=== PATIENT | male | born 1970 | race African-American/Black ===

== ENCOUNTER 2019-02-06 05:38 | Outpatient (CLI) | payer OTHER ==
[~2019-02-06] VITALS: Ht 172.7 cm; Wt 92.5 kg
[2019-02-06] MEDS ORDERED: LISI10TA2 PO (15:46)
[2019-02-06] MEDS ORDERED: OMEG1CAP58 PO (15:46)
[2019-02-06] MEDS ORDERED: CETI10TA20 PO (15:46)
== END 2019-02-06 15:47 | disposition home or self-care (01) ==
LOC: PREOP 05:38
PROVIDERS: ATTEND Surgery
DX: Z01.818 Encounter for other preprocedural examination (principal)

== ENCOUNTER 2019-02-13 07:16 | Day surgery (SDC) | payer OTHER ==
[~2019-02-13] VITALS: Ht 172.7 cm; Wt 92.5 kg
[~2019-02-13 07:16] MED LIST: CETI10TA20 PO; LISI10TA2 PO; OMEG1CAP58 PO
[2019-02-13] MEDS ORDERED: LACTATED RINGERS 1,000 ML IV ONE (07:17)
--- OUTSIDE RECORDS SUMMARY | 2019-02-13 07:19 | XMS REPORT | Continuity of Care Document ---
Author Organization Unknown Address Unknown Allergies There is no data. Medications There is no data. Problems Date Dx Coded Attending Type Code Diagnosis Diagnosed By 09/03/2013 ALFRED JOHNS DO V04.81 FLU SHOT Procedures There is no data. Results There is no data. Encounters ACCT No. Visit Date/Time Discharge Status Pt. Type Provider Facility Loc./Unit Complaint [id number] 09/03/2013 11:36:00 09/03/2013 23:59:59 CLS Outpatient ALFRED JOHNS DO
[2019-02-13] MEDS ORDERED: proPOfol 200 MG/20 ML (DIPRIVAN) VIAL IV ONE ×2 (07:35→09:03)
[2019-02-13] MEDS ORDERED: MIDAZOLAM 2 MG/2 ML (VERSED) VIAL ONE (07:36)
[2019-02-13] MEDS ORDERED: LACTATED RINGERS 1,000 ML IV STA (07:37)
[2019-02-13 07:46] VITALS: BP 129/86
--- NOTE | 2019-02-13 08:13 | Progress Note-Pre Operative ---
Pre-Operative Progress Note H&P Reviewed The H&P was reviewed, patient examined and no changes noted. Date Seen by Provider: Feb 13, 2019 Time Seen by Provider: 08:13 Date H&P Reviewed: Feb 13, 2019 Time H&P Reviewed: 08:13 Pre-Operative Diagnosis: screening colonoscopy JUAN ALBERTO BUSCH DO Feb 13, 2019 08:13
--- NOTE | 2019-02-13 09:17 | Progress Note-Post Operative ---
Post-Operative Progess Note Surgeon (s)/Pathology Laboratory Technologist (s) Surgeon JUAN ALBERTO BUSCH DO Pathology Laboratory Technologist: na Pre-Operative Diagnosis screening colonoscopy Post-Operative Diagnosis normal colon Procedure & Operative Findings Date of Procedure 02/13/19 Procedure Performed/Findings colonoscopy Anesthesia Type per mda Estimated Blood Loss Estimated blood loss (mL): min Specimens/Packing Specimens Removed none JUAN ALBERTO BUSCH DO Feb 13, 2019 09:17
--- NOTE | 2019-02-13 09:18 | Discharge Inst-Simple/Standard ---
Discharge Inst-Standard Patient Instructions/Follow Up Plan of Care/Instructions/FU: repeat colonoscopy 10 years unless family history of colon cancer then 5 years. If any issues before then be seen at that time. Activity as Tolerated: Yes Discharge Diet: Regular Diet JUAN ALBERTO BUSCH DO Feb 13, 2019 09:18
[2019-02-13 09:20] VITALS: BP 95/57
--- NOTE | 2019-02-13 09:39 | Anesthesia-General Post-Op ---
MAC Patient Condition Mental Status/LOC: Same as Preop Cardiovascular: Satisfactory Nausea/Vomiting: Absent Respiratory: Satisfactory Pain: Controlled Complications: Absent Post Op Complications Complications None Follow Up Care/Instructions Patient Instructions None needed. Anesthesiology Discharge Order Discharge Order Patient is doing well, no complaints, stable vital signs, no apparent adverse anesthesia problems. No complications reported per nursing. TRANG HOLT CRNA Feb 13, 2019 09:39
[2019-02-13 09:50] VITALS: BP 109/85
[2019-02-13 10:11] VITALS: BP 109/85
--- NOTE | 2019-02-13 14:05 | OPERATIVE REPORT ---
DATE OF SERVICE: 02/13/2019 PREOPERATIVE DIAGNOSIS: Screening colonoscopy. POSTOPERATIVE DIAGNOSIS: Normal colon. PROCEDURE: Colonoscopy. SURGEON: Juan Alberto Wilson DO ANESTHESIA: Per MDA. ESTIMATED BLOOD LOSS: None. COMPLICATIONS: None. INDICATIONS: The patient is a 48-year-old male with screening colonoscopy. He understands risks and benefits of procedure and wished to proceed with procedure. Consent was signed in the chart. DESCRIPTION OF PROCEDURE: The patient was taken to the endoscopy suite, placed in left lateral recumbent position. Timeout was performed. Scope was inserted in the rectum and advanced all the way to the cecum without difficulty. Prep was adequate. Scope was then slowly retracted back. There were no polyps, mass or ulceration in the cecum, ascending, transverse, descending and sigmoid colon. Once in the rectum, scope was retroflexed noting no other pathology. Scope was returned to its normal position, slowly withdrawn until completely removed. The patient tolerated the procedure well without any complications. He was taken to recovery room in stable condition. RECOMMENDATIONS: The patient will need repeat colonoscopy in 10 years unless family history of colon cancer, which would then be 5 years. Any issues before that will be seen at that time. Job ID: [id number] DocumentID: [id number] Dictated Date: 02/13/2019 09:20:36 B Operator Date: 02/13/2019 14:04:21 Dictated By: JUAN ALBERTO WILSON DO
== END 2019-02-13 10:11 | disposition home or self-care (01) ==
LOC: ENDO 07:16
PROVIDERS: ATTEND Surgery
DX: Z12.11 Encounter for screening for malignant neoplasm of colon (principal); I10 Essential (primary) hypertension; F17.210 Nicotine dependence, cigarettes, uncomplicated; Z79.899 Other long term (current) drug therapy

== ENCOUNTER 2020-07-19 07:30 | Inpatient (IN) | payer OTHER ==
[~2020-07-19] VITALS: Ht 172.7 cm; Wt 93.6 kg
[~2020-07-19 07:30] MED LIST changes: -CETI10TA20 PO; +CETI10TA49 PO
[2020-07-19] MEDS ORDERED: FAMOTIDINE 20MG/2ML IV (PEPCID) IV STA (08:06)
[2020-07-19] MEDS ORDERED: LACTATED RINGERS 1,000 ML IV STA ×2 (08:06→08:48)
[2020-07-19] MEDS ORDERED: ONDANSETRON 4 MG/2 ML (SDV) Z0FRAN IVP ONE (08:15)
[2020-07-19 08:25] LABS: MEAN CORPUSCULAR HEMOGLOBIN 27 pg (25-34)
[2020-07-19 08:27] LABS: BASOPHILS # (AUTO) 0.1 10^3/uL (0.0-0.1); BASOPHILS % (AUTO) 1 % (0-10); EOSINOPHILS % (AUTO) 0 % (0-10); HEMATOCRIT 43 % (40-54); LYMPHOCYTES # (AUTO) 1.4 10^3/uL (1.0-4.0); LYMPHOCYTES % (AUTO) 12 % (12-44); MEAN CORPUSCULAR HGB CONC 30 g/dL (32-36); MEAN CORPUSCULAR VOLUME 89 fL (80-99); MEAN PLATELET VOLUME 13.3 fL (9.0-12.2); MONOCYTES # (AUTO) 1.4 10^3/uL (0.0-1.0); MONOCYTES % (AUTO) 12 % (0-12); NEUTROPHILS # (AUTO) 8.2 10^3/uL (1.8-7.8); NEUTROPHILS % (AUTO) 69 % (42-75); PLATELET COUNT 304 10^3/uL (130-400); WHITE BLOOD COUNT 11.8 10^3/uL (4.3-11.0)
--- NOTE | 2020-07-19 08:29 | ED Abdominal Pain ---
General Chief Complaint: Abdominal/GI Problems Stated Complaint: SOA, VOMITING Source of Information: Patient Exam Limitations: No Limitations History of Present Illness Date Seen by Provider: Jul 19, 2020 Time Seen by Provider: 07:53 Initial Comments Here with report of not feeling well onset 6-7 days ago. States it started with body aches and feeling weak as well as nausea and vomiting. He was tested for COVID-19 4 days ago on 07/15/2020 and that was negative. 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 States he was able to take in some broth and was able to keep fluids down. Today he reports that he has had nausea, vomiting and feels extremely weak. Has had large amount of vomitus today on arrival to the ED room that was green/black. Reports 20 pound weight loss over the last week Timing/Duration: 5-6 Days, Getting Worse Severity/Quality: Moderate, Cramping Location: Generalized Abdomen Radiation: Back Activities at Onset: None Modifying Factors: Worsens With Eating, Worsens With Movement; Improves With Resting Associated Symptoms: Back Pain; No Chest Pain; Fever/Chills, Fatigue, Nausea/Vomiting; No Shortness of Air, No Swelling/Mass in Abdomen; Weakness Allergies and Home Medications Allergies Coded Allergies: No Known Drug Allergies (Unverified , 02/06/19) Home Medications Cetirizine HCl 10 Mg Tablet, 10 MG PO DAILY, (Reported) Lisinopril 10 Mg Tablet, 10 MG PO DAILY, (Reported) [place]-3 Fatty Acids/Fish Oil 1 Each Capsule, 1,000 MG PO DAILY, (Reported) Patient Home Medication List Home Medication List Reviewed: Yes Review of Systems Review of Systems Constitutional: see HPI, chills; No fever; malaise, weakness EENTM: No Symptoms Reported Respiratory: Denies Cough, Denies Shortness of Air Cardiovascular: Denies Chest Pain, Denies Edema; Lightheadedness Gastrointestinal: Abdominal Pain, Nausea, Vomiting, Other (Small brown stool yesterday) Genitourinary: No Symptoms Reported Musculoskeletal: muscle pain, muscle weakness Skin: no symptoms reported Psychiatric/Neurological: No Symptoms Reported All Other Systems Reviewed Negative Unless Noted: Yes Past Fdrximp-Wzqiue-Jndxxe Hx Past Med/Social Hx: Reviewed Nursing Past Med/Soc Hx Patient Social History Alcohol Use: Occasionally Uses Recreational Drug Use: No Smoking Status: Current Someday Smoker Type Used: Cigarettes 2nd Hand Smoke Exposure: No Recent Hopitalizations: No Seasonal Allergies Seasonal Allergies: Yes Past Medical History Surgeries: No Respiratory: No Cardiac: Yes Hypertension Neurological: No Genitourinary: No Gastrointestinal: No Musculoskeletal: No Endocrine: No HEENT: No Cancer: No Psychosocial: No Integumentary: No Blood Disorders: No Family Medical History Reviewed Nursing Family Hx No Pertinent Family Hx Physical Exam Vital Signs Vital Signs - First Documented 07/19/20 07:40 Temp 36.3 Pulse 107 Resp 20 B/P (MAP) 136/100 (112) O2 Delivery Room Air Capillary Refill : Height/Weight/BMI Height: 5'8.00" Weight: 204lbs. 0.0oz. 92.032620te; 31.0 BMI Method: General Appearance: WD/WN, mild distress HEENT: PERRL/EOMI, pharynx normal Neck: full range of motion, supple Respiratory: lungs clear, normal breath sounds Cardiovascular: no murmur, tachycardia Peripheral Pulses: 2+ Dorsalis Pedis (R), 2+ Left Dors-Pedis (L), 2+ Radial Pulses (R), 2+ Radial Pulses (L) Gastrointestinal: soft, abnormal bowel sounds (Quiet); No guarding, No rebound; tenderness Extremities: non-tender, normal inspection Back: normal inspection, no CVA tenderness, no vertebral tenderness Neurologic/Psychiatric: alert, oriented x 3 Skin: normal color, warm/dry Progress/Results/Core Measures Results/Orders Lab Results Laboratory Tests Test 07/19/20 08:00 07/19/20 08:05 07/19/20 08:14 07/19/20 09:27 Range/Units White Blood Count 11.8 H 4.3-11.0 10^3/uL Red Blood Count 4.83 4.30-5.52 10^6/uL Hemoglobin 13.0 L 13.3-17.7 g/dL Hematocrit 43 40-54 % Mean Corpuscular Volume 89 80-99 fL Mean Corpuscular Hemoglobin 27 25-34 pg Mean Corpuscular Hemoglobin Concent 30 L 32-36 g/dL Red Cell Distribution Width 15.5 H 10.0-14.5 % Platelet Count 304 130-400 10^3/uL Mean Platelet Volume 13.3 H 9.0-12.2 fL Immature Granulocyte % (Auto) 6 % Neutrophils (%) (Auto) 69 42-75 % Lymphocytes (%) (Auto) 12 12-44 % Monocytes (%) (Auto) 12 0-12 % Eosinophils (%) (Auto) 0 0-10 % Basophils (%) (Auto) 1 0-10 % Neutrophils # (Auto) 8.2 H 1.8-7.8 10^3/uL Lymphocytes # (Auto) 1.4 1.0-4.0 10^3/uL Monocytes # (Auto) 1.4 H 0.0-1.0 10^3/uL Eosinophils # (Auto) 0.0 0.0-0.3 10^3/uL Basophils # (Auto) 0.1 0.0-0.1 10^3/uL Immature Granulocyte # (Auto) 0.8 H 0.0-0.1 10^3/uL D-Dimer 9.12 H 0.00-0.49 UG/ML Sodium Level 125 *L 135-145 MMOL/L Potassium Level 5.3 H 3.6-5.0 MMOL/L Chloride Level 84 L 98-107 MMOL/L Carbon Dioxide Level 7 *L 21-32 MMOL/L Anion Gap 34 H 5-14 MMOL/L Blood Urea Nitrogen 59 H 7-18 MG/DL Creatinine 3.20 H 0.60-1.30 MG/DL Estimat Glomerular Filtration Rate 25 BUN/Creatinine Ratio 18 Glucose Level 761 *H 70-105 MG/DL Calcium Level 10.4 H 8.5-10.1 MG/DL Corrected Calcium 10.2 H 8.5-10.1 MG/DL Magnesium Level 3.1 H 1.6-2.4 MG/DL Total Bilirubin 0.5 0.1-1.0 MG/DL Aspartate Amino Transf (AST/SGOT) 20 5-34 U/L Alanine Aminotransferase (ALT/SGPT) 28 0-55 U/L Alkaline Phosphatase 79 40-136 U/L C-Reactive Protein High Sensitivity 34.03 H 0.00-0.50 MG/DL Total Protein 9.4 H 6.4-8.2 GM/DL Albumin 4.2 3.2-4.5 GM/DL Procalcitonin 3.34 H <0.10 NG/ML Coronavirus 2019 (JAYDE) Negative Negative Smear Scan YES Amylase Level 115 25-125 U/L Lipase 102 H 8-78 U/L Blood Gas Puncture Site RGHT RAD Blood Gas Patient Temperature 97.2 Arterial Blood pH 7.18 *L 7.37-7.43 Arterial Blood Partial Pressure CO2 15 *L 35-45 MMHG Arterial Blood Partial Pressure O2 121 H 79-93 MMHG Arterial Blood HCO3 5 *L 23-27 MMOL/L Arterial Blood Total CO2 5.9 L 21.0-31.0 MMOL/L Arterial Blood Oxygen Saturation 97 94-100 % Arterial Blood Base Excess -21.9 L -2.5-2.5 MMOL/L Josiah Test POS Blood Gas Ventilator Setting NO Blood Gas Inspired Oxygen ROOM AIR Test 07/19/20 10:20 Range/Units Urine Color YELLOW Urine Clarity CLEAR Urine pH 5.0 5-9 Urine Specific Grant 1.020 1.016-1.022 Urine Protein TRACE H NEGATIVE Urine Glucose (UA) 3+ H NEGATIVE Urine Ketones 3+ H NEGATIVE Urine Nitrite NEGATIVE NEGATIVE Urine Bilirubin NEGATIVE NEGATIVE Urine Urobilinogen 0.2 < = 1.0 MG/DL Urine Leukocyte Esterase NEGATIVE NEGATIVE Urine RBC (Auto) 1+ H NEGATIVE Urine RBC 2-5 H /HPF Urine WBC NONE /HPF Urine Squamous Epithelial Cells RARE /HPF Urine Crystals PRESENT H /LPF Urine Amorphous Sediment FEW LANIE URATES H /LPF Urine Bacteria NEGATIVE /HPF Urine Casts NONE /LPF Urine Mucus NEGATIVE /LPF Urine Culture Indicated NO Micro Results Microbiology 07/19/20 Influenza Types A,B Antigen (MICHAEL) - Final, Complete My Orders Orders - BIENVENIDO DOZIER MD Ed Iv/Invasive Line Start (07/19/20 08:06) Ondansetron Injection (Zofran Injectio (07/19/20 08:15) Lactated Ringers (Lr 1000 Ml Iv Solution (07/19/20 08:06) Famotidine Injection (Pepcid Injection) (07/19/20 08:06) Cbc With Automated Diff (07/19/20 08:06) Comprehensive Metabolic Panel (07/19/20 08:06) Hs C Reactive Protein (07/19/20 08:06) Magnesium (07/19/20 08:06) Influenza A And B Antigens (07/19/20 08:06) Fibrin Degradation Products (07/19/20 08:06) Procalcitonin (Pct) (07/19/20 08:06) Ekg Tracing (07/19/20 08:06) Chest 1 View, Ap/Pa Only (07/19/20 08:06) Covid 19 Inhouse Test (07/19/20 08:06) Lactated Ringers (Lr 1000 Ml Iv Solution (07/19/20 08:48) Ed Iv/Invasive Line Start (07/19/20 08:48) Arterial Blood Gas (07/19/20 08:48) Insulin (Regular) Human (Novolin R (Per (07/19/20 08:51) Coronavirus Sars-Cov-2 So 2019 (07/19/20 09:08) Ct Abdomen/Pelvis Wo (07/19/20 09:12) Ua Culture If Indicated (07/19/20 09:14) Amylase (07/19/20 10:34) Lipase (07/19/20 10:34) Medications Given in ED Current Medications Medications Dose Ordered Sig/Clemente Route Start Time Stop Time Status Last Admin Dose Admin Ondansetron HCl 8 mg ONCE ONCE IVP 07/19/20 08:15 07/19/20 08:16 DC 07/19/20 08:17 8 MG Vital Signs/I&O 07/19/20 07:40 Temp 36.3 Pulse 107 Resp 20 B/P (MAP) 136/100 (112) O2 Delivery Room Air Progress Progress Note : Progress Note Seen and evaluated. IV, labs, chest x-ray, EKG, LR 1 L bolus, Zofran 8 mg IV and Pepcid 20 mg IV ordered. Monitor patient. Blood sugar noted to be >700. Repeat LR 1 L bolus and insulin 10 units IV ordered. We will get CT abdomen and pelvis to rule out obstruction or other intra-abdominal pathology but will be without contrast due to elevated serum creatinine. Monitor patient. 1055: CT does show acute pancreatitis with inflammatory changes without cyst. Patient will require admission due to multifactorial including acute renal failure, acute pancreatitis and new onset hyperglycemia. Rapid Covid was negative with pending confirmatory test. Initial ECG Impression Date: Jul 19, 2020 Initial ECG Impression Time: 08:38 Initial ECG Rate: 99 Initial ECG Rhythm: Normal Sinus Initial ECG Comparisson: No Previous ECG Available Comment Sinus rhythm with normal axis. No evidence of ST elevation [place]. No previous available for comparison. Interpreted by me. Diagnostic Imaging Diagonstic Imaging: Xray Plain Films/CT/US/NM/MRI: chest Comments [facility] [place], [place] NAME: NAYAN JOEL [facility] REC#: [id number] PT STATUS: REG ER : 1970 PHYSICIAN: BIENVENIDO DOZIER MD ADMIT DATE: 07/19/20/ER Signed Date of Exam:07/19/20 CHEST 1 VIEW, AP/PA ONLY EXAMINATION: Chest 1 view HISTORY: Abdominal pain and weakness COMPARISON: None available. FINDINGS: There is moderate mid zone atelectasis. Otherwise, the lungs are clear without edema or pneumonia. No pleural effusion or pneumothorax. Heart size is normal. IMPRESSION: 1. Mild atelectasis, otherwise clear lungs. Dictated by: Dictated on workstation # [id number] Dict: 07/19/20902 Trans: 07/19/20 09 [facility] [id number] Interpreted by: ELVIE POLLOCK MD Electronically signed by: ELVIE POLLOCK MD 07/19/20908 Diagonstic Imaging: CT Plain Films/CT/US/NM/MRI: abdomen, pelvis Comments [facility] [place] NAME: NAYAN JOEL [facility] REC#: [id number] PT STATUS: REG ER : 1970 PHYSICIAN: BIENVENIDO DOZIER MD ADMIT DATE: 07/19/20/ER Signed Date of Exam:07/19/20 CT ABDOMEN/PELVIS WO PROCEDURE: CT abdomen and pelvis without contrast. TECHNIQUE: Multiple contiguous axial images were obtained through the abdomen and pelvis without the use of intravenous contrast. Auto Exposure Controls were utilized during the CT exam to meet ALARA standards for radiation dose reduction. INDICATION: Abdominal pain. Nausea and vomiting. COMPARISON: None. FINDINGS: The heart is unremarkable. The included lung bases are clear. Inflammation and edema is seen surrounding the head and proximal body of the pancreas. Associated wall thickening of the 2nd portion of the duodenum is seen. The liver, spleen, adrenal glands, and kidneys have a normal appearance. There is no pathologically enlarged mesenteric or retroperitoneal adenopathy. The bowel loops are nondilated. The appendix is visualized in the right lower quadrant and has a normal appearance. There is no free fluid or free air. No acute fracture or dislocation is seen in the abdomen and pelvis. Endplate degenerative changes are seen at the L5-S1 level. The urinary bladder is mildly distended. There is no free air, loculated collection, or adenopathy in the pelvis. IMPRESSION: 1. Findings concerning for acute pancreatitis with inflammatory changes surrounding the head and proximal body of the pancreas. No loculated fluid collections are seen to suggest pseudocyst. Associated wall thickening is seen in the second portion of the duodenum without evidence of obstruction. Dictated by: Dictated on workstation # [id number] Dict: 07/19/20 0950 Trans: 07/19/20 1003 [facility] [id number] Interpreted by: JUAQUIN ONEILL DO Electronically signed by: JUAQUIN ONEILL DO 07/19/20 1003 Departure Communication (Admissions) Time/Spoke to Admitting Phy: 10:50 Impression Primary Impression: Diabetic ketoacidosis Qualified Codes: E13.10 - Other specified diabetes mellitus with ketoacidosis without coma Additional Impressions: Acute renal failure Qualified Codes: N17.9 - Acute kidney failure, unspecified Acute pancreatitis Qualified Codes: K85.90 - Acute pancreatitis without necrosis or infection, unspecified Disposition: 09 ADMITTED INPATIENT Condition: Stable Admissions Decision to Admit Reason: Admit from ER (General) Decision to Admit/Date: Jul 19, 2020 Time/Decision to Admit Time: 10:45 Departure-Patient Inst. Referrals: NO,LOCAL PHYSICIAN (PCP/Family) Primary Care Physician BIENVENIDO DOZIER MD Jul 19, 2020 08:29
[2020-07-19 08:30] LABS: ALBUMIN 4.2 GM/DL (3.2-4.5); POTASSIUM 5.3 MMOL/L (3.6-5.0)
[2020-07-19 08:32] LABS: CALCIUM 10.4 MG/DL (8.5-10.1)
[2020-07-19 08:33] LABS: TOTAL PROTEIN 9.4 GM/DL (6.4-8.2)
[2020-07-19 08:35] LABS: BILIRUBIN,TOTAL 0.5 MG/DL (0.1-1.0)
[2020-07-19 08:37] LABS: CREATININE SERUM 3.2 MG/DL (0.60-1.30)
[2020-07-19 08:39] LABS: MAGNESIUM 3.1 MG/DL (1.6-2.4)
[2020-07-19 08:44] LABS: SMEAR SCAN COMMENT YES
[2020-07-19] MEDS ORDERED: inSUlin (REGULAR) HUMAN 1 UNIT/0.01 ML (CHARGE PER UNIT) IV STA (08:51)
--- NOTE | 2020-07-19 09:06 | Diagnostic Imaging Report ---
EXAMINATION: Chest 1 view HISTORY: Abdominal pain and weakness COMPARISON: None available. FINDINGS: There is moderate mid zone atelectasis. Otherwise, the lungs are clear without edema or pneumonia. No pleural effusion or pneumothorax. Heart size is normal. IMPRESSION: 1. Mild atelectasis, otherwise clear lungs. Dictated by: Dictated on workstation # [id number]
[2020-07-19 09:37] LABS: ABG BASE EXCESS -21.9 MMOL/L (-2.5-2.5); ABG OXYGEN SATURATION 97 % (94-100); ABG PO2 121 MMHG (79-93); ABG TCO2 5.9 MMOL/L (21.0-31.0)
[2020-07-19 09:44] LABS: ABG PCO2 15 MMHG (35-45); ABG PH 7.18 (7.37-7.43)
[2020-07-19 09:45] LABS: ALLENS TEST POS; VENTILATOR NO
[2020-07-19 09:46] LABS: INSPIRED O2 ROOM AIR; PATIENT TEMP 97.2
--- NOTE | 2020-07-19 09:46 | NUR ---
PROVIDER NOTIFIED OF pH-7.18, CO2-15, and Bicarb-5.
--- NOTE | 2020-07-19 10:00 | Diagnostic Imaging Report ---
PROCEDURE: CT abdomen and pelvis without contrast. TECHNIQUE: Multiple contiguous axial images were obtained through the abdomen and pelvis without the use of intravenous contrast. Auto Exposure Controls were utilized during the CT exam to meet ALARA standards for radiation dose reduction. INDICATION: Abdominal pain. Nausea and vomiting. COMPARISON: None. FINDINGS: The heart is unremarkable. The included lung bases are clear. Inflammation and edema is seen surrounding the head and proximal body of the pancreas. Associated wall thickening of the 2nd portion of the duodenum is seen. The liver, spleen, adrenal glands, and kidneys have a normal appearance. There is no pathologically enlarged mesenteric or retroperitoneal adenopathy. The bowel loops are nondilated. The appendix is visualized in the right lower quadrant and has a normal appearance. There is no free fluid or free air. No acute fracture or dislocation is seen in the abdomen and pelvis. Endplate degenerative changes are seen at the L5-S1 level. The urinary bladder is mildly distended. There is no free air, loculated collection, or adenopathy in the pelvis. IMPRESSION: 1. Findings concerning for acute pancreatitis with inflammatory changes surrounding the head and proximal body of the pancreas. No loculated fluid collections are seen to suggest pseudocyst. Associated wall thickening is seen in the second portion of the duodenum without evidence of obstruction. Dictated by: Dictated on workstation # [id number]
[2020-07-19 10:29] LABS: BILIRUBIN,URINE NEGATIVE (NEGATIVE); CLARITY,URINE CLEAR; COLOR,URINE YELLOW; GLUCOSE, URINE (UA) 3+ (NEGATIVE); KETONES,URINE 3+ (NEGATIVE); LEUKOCYTE ESTERASE ,URINE NEGATIVE (NEGATIVE); NITRITE,URINE NEGATIVE (NEGATIVE); PROTEIN,URINE TRACE (NEGATIVE)
[2020-07-19 10:41] LABS: AMYLASE 115 U/L (25-125)
[2020-07-19 10:44] LABS: AMORPHOUS SEDIMENT,UR FEW AMOR URATES /LPF; BACTERIA,URINE NEGATIVE /HPF; SQUAMOUS EPITHELIAL CELL,UR RARE /HPF
[2020-07-19 10:50] LABS: LIPASE 102 U/L (8-78)
[2020-07-19 12:02] LABS: MEAN PLATELET VOLUME 12.6 fL (9.0-12.2)
[2020-07-19 12:15] LABS: POTASSIUM 5.4 MMOL/L (3.6-5.0)
[2020-07-19 12:16] LABS: CALCIUM 9.6 MG/DL (8.5-10.1)
[2020-07-19 12:20] LABS: CREATININE SERUM 2.65 MG/DL (0.60-1.30)
[2020-07-19] MEDS: inSUlin REGULAR 100 UNITS/100 ML DRIP (Premix) IV SCH (12:42)
[2020-07-19] MEDS: ENOXAPARIN 30 MG/0.3 ML (LOVENOX) SYR SC SCH (12:44)
[2020-07-19] MEDS: 1/2 NS IV SOLUTION 1,000 ML IV SCH ×3 (12:44→21:23)
[2020-07-19] MEDS: ONDANSETRON 4 MG/2 ML (SDV) Z0FRAN IV PRN (12:58)
[2020-07-19 14:40] LABS: POTASSIUM 5.1 MMOL/L (3.6-5.0)
[2020-07-19 14:41] LABS: CALCIUM 9.9 MG/DL (8.5-10.1)
[2020-07-19 14:45] LABS: CREATININE SERUM 2.57 MG/DL (0.60-1.30)
[2020-07-19] MEDS: D5 1/2 NS 1000 ML IV SOLUTION 1,000 ML IV SCH ×2 (21:22→21:23)
[2020-07-20] MEDS: D5 1/2 NS 1000 ML IV SOLUTION 1,000 ML IV SCH ×4 (00:34→12:07)
[2020-07-20] MEDS: 1/2 NS IV SOLUTION 1,000 ML IV SCH ×4 (00:34→12:07)
[2020-07-20 02:17] LABS: BASOPHILS % (AUTO) 1 % (0-10); EOSINOPHILS % (AUTO) 0 % (0-10); HEMATOCRIT 34 % (40-54); LYMPHOCYTES # (AUTO) 0.9 10^3/uL (1.0-4.0); LYMPHOCYTES % (AUTO) 10 % (12-44); MEAN CORPUSCULAR HEMOGLOBIN 27 pg (25-34); MEAN CORPUSCULAR HGB CONC 33 g/dL (32-36); MEAN CORPUSCULAR VOLUME 82 fL (80-99); MEAN PLATELET VOLUME 12.7 fL (9.0-12.2); MONOCYTES # (AUTO) 1.1 10^3/uL (0.0-1.0); MONOCYTES % (AUTO) 14 % (0-12); NEUTROPHILS # (AUTO) 5.8 10^3/uL (1.8-7.8); NEUTROPHILS % (AUTO) 71 % (42-75); PLATELET COUNT 229 10^3/uL (130-400); WHITE BLOOD COUNT 8.2 10^3/uL (4.3-11.0)
[2020-07-20] MEDS: inSUlin REGULAR 100 UNITS/100 ML DRIP (Premix) IV SCH (02:35)
[2020-07-20 02:38] LABS: ALBUMIN 3.4 GM/DL (3.2-4.5); POTASSIUM 3.3 MMOL/L (3.6-5.0)
[2020-07-20 02:40] LABS: CALCIUM 8.9 MG/DL (8.5-10.1)
[2020-07-20 02:41] LABS: TOTAL PROTEIN 7.3 GM/DL (6.4-8.2)
[2020-07-20] MEDS: POTASSIUM CL 10MEQ/50ML IVPB 50 ML IV SCH ×4 (02:42→08:46)
[2020-07-20 02:43] LABS: BILIRUBIN,TOTAL 0.4 MG/DL (0.1-1.0)
[2020-07-20 02:44] LABS: CREATININE SERUM 1.7 MG/DL (0.60-1.30)
--- NOTE | 2020-07-20 07:47 | History & Physical-Hospitalist ---
History of Present Illness HPI/Chief Complaint John Shannon is a 49 year old male with PMH HTN who presented with nausea and vomiting. He has not been feeling well for about a week. He reports fatigue and weakness. He reports epigastric abdominal pain that radiates to his back. He has lost weight. He has been urinating frequently. He denies dysuria. He denies fev ers and chills. He denies chest pain and palpitations. He denies shortness of breath and cough. He has not had diarrhea. He reports occasional binge drinking and had at least 6-7 drinks last Tuesday before this began. He has no history of diabetes. He takes one medicine for blood pressure and fish oil for cholesterol. He also take claritin for allergies. Source: patient Exam Limitations: no limitations Date Seen 07/19/20 Time Seen by a Provider: 14:00 Attending Physician Josie Gayle MD PCP No,Local Physician Referring Physician Date of Admission Jul 19, 2020 at 11:06 Home Medications & Allergies Home Medications Reviewed patient Home Medication Reconciliation performed by pharmacy medication reconciliations airdrop systems technician and/or nursing. Patients Allergies have been reviewed. Allergies Allergies Coded Allergies No Known Drug Allergies (Unverified02/06/19) Past Dpjoypk-Iqenvt-Xmgrps Hx Past Med/Social Hx: Reviewed Nursing Past Med/Soc Hx Patient Social History Alcohol Use: Occasionally Uses Recreational Drug Use: No Smoking Status: Current Someday Smoker Type Used: Cigarettes 2nd Hand Smoke Exposure: No Recent Foreign Travel: No Contact w/other who traveled: No Recent Hopitalizations: No Recent Infectious Disease Expo: No Immunizations Up To Date Date of Influenza Vaccine: Jun 18, 2020 Seasonal Allergies Seasonal Allergies: Yes Past Medical History Cardiac: Hypertension History of Blood Disorders: No Family History Reviewed Nursing Family Hx Cardiovascular disease 19 FATHER 19 MOTHER Diabetes mellitus 19 FATHER 19 MOTHER FH: cancer 19 FATHER 19 MOTHER Hypertension 19 FATHER 19 MOTHER No Pertinent Family Hx Review of Systems Constitutional: malaise, weakness, weight loss EENTM: no symptoms reported Respiratory: short of breath Cardiovascular: no symptoms reported Gastrointestinal: abdominal pain, nausea, vomiting Genitourinary: frequency Musculoskeletal: back pain Skin: no symptoms reported Psychiatric/Neurological: No Symptoms Reported Physical Exam Physical Exam Vital Signs Vital Signs - First Documented 07/19/20 07/19/20 07:40 11:15 Temp 36.3 Pulse 107 Resp 20 B/P (MAP) 136/100 (112) Pulse Ox 99 O2 Delivery Room Air Capillary Refill : Less Than 3 Seconds Height, Weight, BMI Height: 5'8.00" Weight: 204lbs. 0.0oz. 92.513580iu; 30.87 BMI Method: General Appearance: No Apparent Distress, Obese HEENT: PERRL/EOMI, Pharynx Normal Neck: Normal Inspection, Supple Respiratory: Lungs Clear, Normal Breath Sounds, No Respiratory Distress Cardiovascular: Regular Rate, Rhythm, No Edema, No Murmur Gastrointestinal: Normal Bowel Sounds, Soft; No Distended, No Guarding, No Hepatomegaly; Tenderness Extremity: Normal Inspection, Non Tender, No Pedal Edema Neurologic/Psychiatric: Alert, Oriented x3, No Motor/Sensory Deficits, Normal Mood/Affect Skin: Normal Color, Warm/Dry Lymphatic: No Adenopathy Results Results/Procedures Labs Laboratory Tests 07/19/20 08:00 07/19/20 11:52 07/19/20 14:20 07/20/20 02:00 Patient resulted labs reviewed. Imaging: Reviewed Imaging Report Assessment/Plan Admission Diagnosis Diabetic ketoacidosis Admission Status: Inpatient Order (span 2 midnights) Reason for Inpatient Admission: DKA requiring IV fluids and insulin Pancreatitis requiring close monitoring and treatment Assessment and Plan New onset diabetes with ketoacidosis Blood sugar >700, bicarbonate 7, beta hydroxybutyrate >8 Started on DKA protocol Insulin gtt IV fluids Closely monitor labs Pancreatits Alcohol induced vs gallstone Lipase mildly elevated CT Abdomen with evidence of pancreatits, no necrosis or pseudocyst NPO Pain regimen IV fluids Elevated d-dimer No hypoxia or leg swelling Consider lower extremity doppler Tuesday Prophylactic Lovenox HTN HLD Hold home meds Obesity Clincially significant, no acute management needs DVT Prophylaxis: Lovenox Diagnosis/Problems Diagnosis/Problems (1) Diabetic ketoacidosis Status: Acute Qualifiers: Diabetes mellitus type: other specified (including TOSHIA) Diabetes mellitus complication detail: without coma Qualified Codes: E13.10 - Other specified diabetes mellitus with ketoacidosis without coma (2) Acute pancreatitis Status: Acute Qualifiers: Pancreatitis type: unspecified pancreatitis type Acute pancreatitis complication: unspecified Qualified Codes: K85.90 - Acute pancreatitis without necrosis or infection, unspecified (3) Acute renal failure Status: Acute Qualifiers: Acute renal failure type: unspecified Qualified Codes: N17.9 - Acute kidney failure, unspecified Clinical Quality Measures DVT/VTE Risk/Contraindication: Risk Factor Score Per Nursin RFS Level Per Nursing on Admit: 1=Low/No VTE PPX JOSIE GAYLE MD Jul 20, 2020 07:47
[2020-07-20 08:38] LABS: CHLORIDE 102 MMOL/L (98-107); POTASSIUM 3.4 MMOL/L (3.6-5.0); SODIUM 135 MMOL/L (135-145)
[2020-07-20 08:39] LABS: CALCIUM 8.8 MG/DL (8.5-10.1); GLUCOSE 202 MG/DL (70-105)
[2020-07-20 08:41] LABS: CARBON DIOXIDE 19 MMOL/L (21-32)
[2020-07-20 08:43] LABS: CREATININE SERUM 1.37 MG/DL (0.60-1.30); GFR ESTIMATED > 60
[2020-07-20 08:44] LABS: BUN/CREATININE RATIO 20
[2020-07-20] MEDS: ONDANSETRON 4 MG/2 ML (SDV) Z0FRAN IV PRN (08:46)
[2020-07-20 10:09] LABS: BILIRUBIN,URINE NEGATIVE (NEGATIVE); CLARITY,URINE CLEAR; COLOR,URINE YELLOW; GLUCOSE, URINE (UA) 1+ (NEGATIVE); KETONES,URINE TRACE (NEGATIVE); LEUKOCYTE ESTERASE ,URINE NEGATIVE (NEGATIVE); NITRITE,URINE NEGATIVE (NEGATIVE); PROTEIN,URINE TRACE (NEGATIVE)
[2020-07-20 10:26] LABS: BACTERIA,URINE TRACE /HPF
[2020-07-20 10:27] LABS: AMORPHOUS SEDIMENT,UR RARE AMOR URATES /LPF
--- NOTE | 2020-07-20 11:03 | Consultation - Surgery ---
MARNIE GROVE MED STUDENT 07/20/20 1103: History of Present Illness History of Present Illness Patient Consulted On(vicky/time) 07/20/20 10:58 Date Seen by Provider: Jul 20, 2020 Time Seen by Provider: 09:45 History of Present Illness Consulted by Dr. Spicer for acute pancreatitis. This is a 49 YO male with history of HTN who presented to the ED yesterday after N/V, upper abdominal pain, and body aches for the past week. Pt states he also had some SOB and was COVID test last week, which was negative. COVID tests here were also negative. In the ER, pt's glucose was 761 and he denies personal history of DM, but does have a family history. CXR showed mild atelectasis. CT abdomen/pelvis showed inflammatory changes around the head and body of pancrease and associated wall thickening of second portion of duodenum. No evidence of obstruction or pseudocyst. Amylase was 115 and lipase 102. WBC today is 8.2 from 12.0 yesterday and hgb is 11.0 from 12.0. Pt states he is still having some sharp epigastric pain, but it is improved from yesterday. No history of abdominal surgeries or gallbladder problems. Says since age 26, he has 4 shots of tequila daily as well as 2 beers/day on the weeks. Started smoking when he was 26, but has decreased to 2-4 cigarettes per day, up to 8 on the weekends. Denies drug use. Allergies and Home Medications Allergies Coded Allergies: No Known Drug Allergies (Unverified , 02/06/19) Home Medications Cetirizine HCl 10 Mg Tablet, 10 MG PO DAILY, (Reported) Lisinopril 10 Mg Tablet, 10 MG PO DAILY, (Reported) [place]-3 Fatty Acids/Fish Oil 1 Each Capsule, 1,000 MG PO DAILY, (Reported) Past Xsmakar-Jjxlta-Gjjhys Hx Patient Social History Alcohol Use: Regular Use Recreational Drug Use: No Smoking Status: Current Someday Smoker Type Used: Cigarettes 2nd Hand Smoke Exposure: No Recent Foreign Travel: No Contact w/Someone Who Travel: No Recent Infectious Disease Expo: No Recent Hopitalizations: No Immunizations Up To Date Date of Influenza Vaccine: Jun 18, 2020 Seasonal Allergies Seasonal Allergies: Yes Surgeries History of Surgeries: No Respiratory History of Respiratory Disorde: No Cardiovascular History of Cardiac Disorders: Yes Cardiac Disorders: Hypertension Neurological History of Neurological Disord: No Genitourinary History of Genitourinary Disor: No Gastrointestinal History of Gastrointestinal Di: No Musculoskeletal History of Musculoskeletal Dis: No Endocrine History of Endocrine Disorders: No HEENT History of HEENT Disorders: No Cancer History of Cancer: No Psychosocial History of Psychiatric Problem: No Integumentary History of Skin or Integumenta: No Blood Transfusions History of Blood Disorders: No Family Medical History Significant Family History: No Pertinent Family Hx Family Medial History: Cardiovascular disease 19 FATHER 19 MOTHER Diabetes mellitus 19 FATHER 19 MOTHER FH: cancer 19 FATHER 19 MOTHER Hypertension 19 FATHER 19 MOTHER Review of Systems-General Constitutional: No chills, No fever EENTM: No blurred vision, No double vision Respiratory: No cough, No hemoptysis Cardiovascular: No chest pain, No palpitations Gastrointestinal: abdominal pain; No diarrhea Genitourinary: No dysuria, No frequency Musculoskeletal: No back pain, No neck pain Skin: No change in color, No change in hair/nails Psychiatric/Neurological: Denies Headache, Denies Numbness All Other Systems Reviewed Negative Unless Noted: Yes (Negative excepted noted.) Physical Exam-General Problems Physical Exam Vital Signs Vital Signs - First Documented 07/19/20 07/19/20 07:40 11:15 Temp 36.3 Pulse 107 Resp 20 B/P (MAP) 136/100 (112) Pulse Ox 99 O2 Delivery Room Air Capillary Refill : Less Than 3 Seconds General Appearance: WD/WN, no apparent distress Eyes: Bilateral Eye Normal Inspection, Bilateral Eye EOMI HEENT: PERRL/EOMI, normal ENT inspection Neck: supple, normal inspection Respiratory: lungs clear, normal breath sounds, no respiratory distress, no accessory muscle use Cardiovascular: regular rate, rhythm, no edema, no murmur Gastrointestinal: soft; No guarding, No rebound; tenderness (epigastric) Rectal: deferred Back: normal inspection, no CVA tenderness Extremities: normal inspection, no pedal edema, no calf tenderness Neurologic/Psychiatric: no motor/sensory deficits, alert, normal mood/affect, oriented x 3 Skin: normal color, warm/dry Lymphatic: no adenopathy Data Review Labs Laboratory Tests 07/19/20 11:52: White Blood Count 12.0H, Red Blood Count 4.35, Hemoglobin 12.0L, Hematocrit 40, Mean Corpuscular Volume 91, Mean Corpuscular Hemoglobin 28, Mean Corpuscular Hemoglobin Concent 30L, Red Cell Distribution Width 15.4H, Platelet Count 255, Mean Platelet Volume 12.6H, Sodium Level 127L, Potassium Level 5.4H, Chloride Level 92L, Carbon Dioxide Level 7*L, Anion Gap 28H, Blood Urea Nitrogen 55H, Creatinine 2.65#H, Estimat Glomerular Filtration Rate 31, BUN/Creatinine Ratio 21, Glucose Level 748*H, Calcium Level 9.6, Beta-Hydroxybutyrate (Chem panel) 8.76H 07/19/20 13:37: Glucometer 560*H 07/19/20 14:01: Glucometer 500*H 07/19/20 14:20: Sodium Level 129L, Potassium Level 5.1H, Chloride Level 94L, Carbon Dioxide Level 10L, Anion Gap 25H, Blood Urea Nitrogen 54H, Creatinine 2.57H, Estimat Glomerular Filtration Rate 32, BUN/Creatinine Ratio 21, Glucose Level 617*H, Calcium Level 9.9, Glucometer 501*H 07/19/20 15:50: Glucometer 427*H 07/19/20 16:47: Glucometer 365H 07/19/20 17:53: Glucometer 327H 07/19/20 19:08: Glucometer 354H 07/19/20 20:06: Glucometer 279H 07/19/20 21:18: Glucometer 264H 07/19/20 22:37: Glucometer 265H 07/19/20 23:25: Glucometer 251H 07/20/20 00:31: Glucometer 225H 07/20/20 01:27: Glucometer 207H 07/20/20 02:00: White Blood Count 8.2, Red Blood Count 4.10L, Hemoglobin 11.0L, Hematocrit 34L, Mean Corpuscular Volume 82, Mean Corpuscular Hemoglobin 27, Mean Corpuscular Hemoglobin Concent 33, Red Cell Distribution Width 14.5, Platelet Count 229, Mean Platelet Volume 12.7H, Immature Granulocyte % (Auto) 4, Neutrophils (%) (Auto) 71, Lymphocytes (%) (Auto) 10L, Monocytes (%) (Auto) 14H, Eosinophils (%) (Auto) 0, Basophils (%) (Auto) 1, Neutrophils # (Auto) 5.8, Lymphocytes # (Auto) 0.9L, Monocytes # (Auto) 1.1H, Eosinophils # (Auto) 0.0, Basophils # (Auto) 0.0, Immature Granulocyte # (Auto) 0.4H, Sodium Level 134L, Potassium Level 3.3L, Chloride Level 102, Carbon Dioxide Level 19L, Anion Gap 13, Blood Urea Nitrogen 34H, Creatinine 1.70H, Estimat Glomerular Filtration Rate 52, BUN/Creatinine Ratio 20, Glucose Level 250H, Calcium Level 8.9, Corrected Calcium 9.4, Total Bilirubin 0.4, Aspartate Amino Transf (AST/SGOT) 19, Alanine Aminotransferase (ALT/SGPT) 24, Alkaline Phosphatase 69, Total Protein 7.3, Albumin 3.4 07/20/20 02:32: Glucometer 245H 07/20/20 04:09: Glucometer 261H 07/20/20 04:50: Glucometer 206H 07/20/20 06:47: Glucometer 210H 07/20/20 07:42: Glucometer 175H 07/20/20 08:12: Sodium Level 135, Potassium Level 3.4L, Chloride Level 102, Carbon Dioxide Level 19L, Anion Gap 14, Blood Urea Nitrogen 27H, Creatinine 1.37H, Estimat Glomerular Filtration Rate > 60, BUN/Creatinine Ratio 20, Glucose Level 202H, Calcium Level 8.8, Beta-Hydroxybutyrate (Chem panel) 0.45H 07/20/20 08:38: Glucometer 198H 07/20/20 08:45: Urine Color YELLOW, Urine Clarity CLEAR, Urine pH 6.0, Urine Specific Shannon 1.025H, Urine Protein TRACEH, Urine Glucose (UA) 1+H, Urine Ketones TRACEH, Urine Nitrite NEGATIVE, Urine Bilirubin NEGATIVE, Urine Urobilinogen 0.2, Urine Leukocyte Esterase NEGATIVE, Urine RBC (Auto) NEGATIVE, Urine RBC NONE, Urine WBC NONE, Urine Crystals PRESENTH, Urine Amorphous Sediment RARE LANIE URATESH, Urine Bacteria TRACE, Urine Casts NONE, Urine Mucus NEGATIVE, Urine Culture Indicated NO 07/20/20 09:39: Glucometer 216H Microbiology 07/19/20 Influenza Types A,B Antigen (MICHAEL) - Final, Complete Assessment/Plan Assessment/Plan Assessment/Plan Acute pancreatitis DKA Acute renal failure Alcohol abuse NPO IV fluids pain control Monitor labs Gallbladder US in the morning Glucose control Monitor for withdrawal symptoms Lovenox for DVT prophylaxis Clinical Quality Measures DVT/VTE Risk/Contraindication: Risk Factor Score Per Nursin RFS Level Per Nursing on Admit: 1=Low/No VTE PPX JUAN ALBERTO WILSON DO 07/20/20 1533: History of Present Illness History of Present Illness History of Present Illness Consult requested by Dr. Spicer for acute pancreatitis. Patient 49-year-old male who presented with upper abdominal pain and body aches for approximately past week. Patient states the pain is sharp in the epigastric area no radiation. Rates pain at an 8 at the worst. Today the pain has improved some. Patient does have alcohol use on a frequent basis. Feels that it may be slightly more than normal. Patient never had any issues with his blood sugar however in the ER it was 761. Patient had a CT scan abdomen pelvis that showed inflammatory changes around the head of the pancreas and body of pancreas also some wall thickening of the second portion of the duodenum no pseudocyst. Allergies and Home Medications Allergies Coded Allergies: No Known Drug Allergies (Unverified , 02/06/19) Home Medications Cetirizine HCl 10 Mg Tablet, 10 MG PO DAILY, (Reported) Lisinopril 10 Mg Tablet, 10 MG PO DAILY, (Reported) [place]-3 Fatty Acids/Fish Oil 1 Each Capsule, 1,000 MG PO DAILY, (Reported) Patient Home Medication List Home Medication List Reviewed: Yes Past Bjybvap-Twpwnx-Jqmtmp Hx Patient Social History Alcohol Use: Regular Use Recreational Drug Use: No Smoking Status: Light Tobacco Smoker Surgeries History of Surgeries: No Reviewed Nursing Assessment Reviewed/Agree w Nursing PMH: Yes Family Medical History Significant Family History: Heart Disease, Hypertension Family Medial History: Cardiovascular disease 19 FATHER 19 MOTHER Diabetes mellitus 19 FATHER 19 MOTHER FH: cancer 19 FATHER 19 MOTHER Hypertension 19 FATHER 19 MOTHER Review of Systems-General Constitutional: No chills, No fever EENTM: No blurred vision, No double vision Respiratory: No cough, No hemoptysis Cardiovascular: No chest pain, No palpitations Gastrointestinal: abdominal pain; No diarrhea Genitourinary: No dysuria, No frequency Musculoskeletal: No back pain, No neck pain Skin: No change in color, No change in hair/nails Psychiatric/Neurological: Denies Headache, Denies Numbness All Other Systems Reviewed Negative Unless Noted: Yes (Negative excepted noted.) Physical Exam-General Problems Physical Exam General Appearance: WD/WN, no apparent distress HEENT: PERRL/EOMI, normal ENT inspection Neck: supple, normal inspection Respiratory: chest non-tender, no respiratory distress, no accessory muscle use Cardiovascular: regular rate, rhythm, no edema, no JVD Gastrointestinal: soft; No guarding, No rebound; tenderness (epigastric) Rectal: deferred Back: normal inspection, no CVA tenderness Extremities: normal range of motion, non-tender, normal inspection 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, no motor/sensory deficits, alert, normal mood/affect, oriented x 3 Skin: normal color, warm/dry Lymphatic: no adenopathy Assessment/Plan Assessment/Plan Assessment/Plan Acute pancreatitis DKA Acute renal failure Alcohol abuse clear liquids, npo after midnight for U/s gallbladder to rule out gallstones IV fluids pain control Monitor labs Glucose control Monitor for withdrawal symptoms Discussed alcohol cessation and causes of pancreatitis Lovenox for DVT prophylaxis Supervisory-Addendum Brief Verification & Attestation Participated in pt care: history, MDM, physical Personally performed: exam, history, MDM, supervision of care Care discussed with: Medical Student Procedures: n/a Results interpretation: Verified all documentation Verification and Attestation of Medical Student E/M Service A medical student performed and documented this service in my presence. I reviewed and verified all information documented by the medical student and made modifications to such information, when appropriate. I personally performed the physical exam and medical decision making. Juan Alberto Wilson, Jul 20, 2020,15:38 MARNIE GROVE MED STUDENT Jul 20, 2020 11:03 JUAN ALBERTO WILSON DO Jul 20, 2020 15:33
[2020-07-20] MEDS: ENOXAPARIN 30 MG/0.3 ML (LOVENOX) SYR SC SCH (13:22)
--- NOTE | 2020-07-20 15:10 | Progress Note - Hospitalist ---
Subjective HPI/CC On Admission Date Seen by Provider: Jul 20, 2020 Time Seen by Provider: 10:15 John Shannon is a 49 year old male with PMH HTN who presented with nausea and vomiting. He has not been feeling well for about a week. He reports fatigue and weakness. He reports epigastric abdominal pain that radiates to his back. He has lost weight. He has been urinating frequently. He denies dysuria. He denies fevers and chills. He denies chest pain and palpitations. He denies shortness of breath and cough. He has not had diarrhea. He reports occasional binge drinking and had at least 6-7 drinks last Tuesday before this began. He has no history of diabetes. He takes one medicine for blood pressure and fish oil for cholester ol. He also take claritin for allergies. Subjective/Events-last exam He is feeling a bit better today. He is not having any more nausea or vomiting. He still has some abdominal pain. He denies fevers and chills. He denies chest pain and palpitations. He denies shortness of breath and cough. He had some clear liquids this morning and tolerated it well. Objective Exam Vital Signs Vital Signs Date Time Temp Pulse Resp B/P (MAP) Pulse Ox O2 Delivery O2 Flow Rate FiO2 07/20/20 12:57 90 07/20/20 12:00 36.6 18 130/85 97 Room Air Capillary Refill : Less Than 3 Seconds General Appearance: No Apparent Distress, Obese HEENT: PERRL/EOMI, Pharynx Normal Neck: Normal Inspection, Supple Respiratory: Lungs Clear, Normal Breath Sounds, No Respiratory Distress Cardiovascular: Regular Rate, Rhythm, No Edema, No Murmur Gastrointestinal: Normal Bowel Sounds, Soft, Tenderness Extremity: Normal Inspection, Non Tender, No Pedal Edema Neurologic/Psychiatric: Alert, Oriented x3, No Motor/Sensory Deficits, Normal Mood/Affect Skin: Normal Color, Warm/Dry Results/Procedures Lab Laboratory Tests 07/20/20 02:00 07/20/20 08:12 Patient resulted labs reviewed. Imaging: Reviewed Imaging Report Assessment/Plan Assessment and Plan Assess & Plan/Chief Complaint New onset diabetes with ketoacidosis DKA resolved Levemir 20 units this mroning Transition off Insulin gtt Add sliding scale Continue IV fluids Pancreatits Alcohol induced vs gallstone Continue IV fluids Clear liquid diet Consult surgery, appreciate assistance Elevated d-dimer No hypoxia or leg swelling US lower extremity tomorrow Prophylactic Lovenox HTN HLD Hold home meds Obesity Clincially significant, no acute management needs DVT Prophylaxis: Lovenox Diagnosis/Problems Diagnosis/Problems (1) Diabetic ketoacidosis Status: Acute Qualifiers: Diabetes mellitus type: other specified (including TOSHIA) Diabetes mellitus complication detail: without coma Qualified Codes: E13.10 - Other specified diabetes mellitus with ketoacidosis without coma (2) Acute pancreatitis Status: Acute Qualifiers: Pancreatitis type: unspecified pancreatitis type Acute pancreatitis complication: unspecified Qualified Codes: K85.90 - Acute pancreatitis without necrosis or infection, unspecified (3) Acute renal failure Status: Acute Qualifiers: Acute renal failure type: unspecified Qualified Codes: N17.9 - Acute kidney failure, unspecified Clinical Quality Measures DVT/VTE Risk/Contraindication: Risk Factor Score Per Nursin RFS Level Per Nursing on Admit: 1=Low/No VTE PPX IGOR GAYLE MD Jul 20, 2020 15:10
[2020-07-20] MEDS ORDERED: ANTACID SUSP 30 ML UDC (MYLANTA) PO PRN (15:30)
[2020-07-20] MEDS ORDERED: diphenhydrAMINE 25 MG TAB (BENADRYL) PO PRN (15:30)
[2020-07-20] MEDS ORDERED: polyethylene glycoL POWDER 17 GM (MIRALAX) PACK PO PRN (15:30)
[2020-07-20] MEDS ORDERED: ONDANSETRON 4 MG/2 ML (SDV) Z0FRAN IV PRN (15:30)
[2020-07-20] MEDS ORDERED: ONDANSETRON 4 MG (ZOFRAN) ORAL DISSOLVE TAB PO PRN (15:30)
[2020-07-20] MEDS: inSUlin ASPART (NovoLOG) 1 UNIT/0.01 ML (CHARGE PER UNIT) SC SCH ×2 (16:24→21:07)
[2020-07-20] MEDS: LACTATED RINGERS 1,000 ML IV SCH (16:48)
[2020-07-20] MEDS: DOCUSATE SODIUM 100 MG (COLACE) CAP PO SCH (20:27)
[2020-07-20] MEDS: SENNOSIDES 8.6 MG (SENOKOT) TAB PO SCH (20:27)
[2020-07-20] MEDS: MELATONIN 3 MG TABLET PO PRN (23:34)
[2020-07-20] MEDS: ACETAMINOPHEN 325 MG TABLET PO PRN (23:38)
[2020-07-21] MEDS: LACTATED RINGERS 1,000 ML IV SCH ×3 (01:38→22:03)
[2020-07-21] MEDS: inSUlin ASPART (NovoLOG) 1 UNIT/0.01 ML (CHARGE PER UNIT) SC SCH ×4 (05:55→20:24)
[2020-07-21 06:12] LABS: CHLORIDE 99 MMOL/L (98-107); POTASSIUM 3.7 MMOL/L (3.6-5.0); SODIUM 132 MMOL/L (135-145)
[2020-07-21 06:13] LABS: CALCIUM 8.6 MG/DL (8.5-10.1)
[2020-07-21 06:14] LABS: GLUCOSE 270 MG/DL (70-105)
[2020-07-21 06:15] LABS: CARBON DIOXIDE 19 MMOL/L (21-32)
[2020-07-21 06:17] LABS: PHOSPHORUS 2.7 MG/DL (2.3-4.7)
[2020-07-21 06:18] LABS: BUN/CREATININE RATIO 18; CREATININE SERUM 1.01 MG/DL (0.60-1.30); GFR ESTIMATED > 60
[2020-07-21 06:20] LABS: MAGNESIUM 2.1 MG/DL (1.6-2.4)
--- NOTE | 2020-07-21 09:08 | Progress Note - Surgery ---
MARNIE GROVE MED STUDENT 07/21/20 0907: Subjective Date Seen by a Provider: Jul 21, 2020 Time Seen by a Provider: 07:15 Subjective/Events-last exam Denies nausea or vomiting. Had clear liquids last night with no difficulty, has been NPO today for gallbladder US planned for this morning. Notes slight improvement of abdominal pain. Objective Exam Vital Signs Date Time Temp Pulse Resp B/P (MAP) Pulse Ox O2 Delivery O2 Flow Rate FiO2 07/21/20 04:02 36.2 84 18 120/71 96 Room Air 07/20/20 23:51 36.3 83 18 133/79 97 Room Air 07/20/20 21:27 Room Air 07/20/20 19:52 36.4 95 18 125/78 98 Room Air 07/20/20 15:41 36.5 85 18 126/80 98 Room Air 07/20/20 12:57 90 07/20/20 12:00 36.6 88 18 130/85 97 Room Air I & O 07/21/20 07:00 Intake Total 1000 ml Output Total 700 ml Balance 300 ml Capillary Refill : Less Than 3 Seconds General Appearance: No Apparent Distress, WD/WN, Obese HEENT: PERRL/EOMI, Normal ENT Inspection Neck: Normal Inspection, Supple Respiratory: Lungs Clear, Normal Breath Sounds, No Accessory Muscle Use, No Respiratory Distress Cardiovascular: Regular Rate, Rhythm, No Edema, No Murmur Gastrointestinal: soft; No guarding, No rebound; tenderness (mid abdomen) Extremity: Normal Inspection, Non Tender, No Pedal Edema Neurologic/Psychiatric: Alert, Oriented x3, No Motor/Sensory Deficits, Normal Mood/Affect Skin: Normal Color, Warm/Dry Lymphatic: No Adenopathy Results Lab Laboratory Tests 07/20/20 09:39: Glucometer 216H 07/20/20 10:41: Glucometer 206H 07/20/20 11:54: Glucometer 119H 07/20/20 15:40: Glucometer 176H 07/20/20 21:00: Glucometer 251H 07/21/20 05:48: Glucometer 245H 07/21/20 05:52: Sodium Level 132L, Potassium Level 3.7, Chloride Level 99, Carbon Dioxide Level 19L, Anion Gap 14, Blood Urea Nitrogen 18, Creatinine 1.01, Estimat Glomerular Filtration Rate > 60, BUN/Creatinine Ratio 18, Glucose Level 270H, Calcium Level 8.6, Phosphorus Level 2.7, Magnesium Level 2.1 Microbiology 07/19/20 Influenza Types A,B Antigen (MICHAEL) - Final, Complete Assessment/Plan Assessment/Plan Assessment/Plan Acute pancreatitis DKA Acute renal failure Alcohol abuse has been npo after midnight for U/s gallbladder to rule out gallstones IV fluids pain control Monitor labs Glucose control Monitor for withdrawal symptoms Lovenox for DVT prophylaxis Clinical Quality Measures DVT/VTE Risk/Contraindication: Risk Factor Score Per Nursin RFS Level Per Nursing on Admit: 1=Low/No VTE PPX SHAYLA PIERSON DO 07/21/20 1450: Subjective Time Seen by a Provider: 09:15 Subjective/Events-last exam Pt seen and examined; still has mild-moderate abdominal pain. Laying in bed and not moving much. Review of Systems General: No Chills, No Night Sweats; Fatigue Pulmonary: No Dyspnea, No Cough Cardiovascular: No: Chest Pain Gastrointestinal: Abdominal Pain; No: Nausea, Vomiting Objective Exam General Appearance: No Apparent Distress, Obese HEENT: PERRL/EOMI, Moist Mucous Membranes Respiratory: Lungs Clear, Normal Breath Sounds, No Accessory Muscle Use, No Respiratory Distress Cardiovascular: Regular Rate, Rhythm, No Murmur Gastrointestinal: soft, guarding (voluntary); No rebound; tenderness (mid abdomen - most, but also minimal across entire abdomen), hernia (small umbilical) Neurologic/Psychiatric: Alert, Oriented x3 Results Radiology Date of Exam:07/21/20 US GALLBLADDER [id number] PROCEDURE: US Gallbladder. TECHNIQUE: Multiple real-time grayscale images were obtained over the right upper quadrant in various projections. INDICATION: Pancreatitis. FINDINGS: The liver is normal in size at 14.4 cm. No discrete liver mass is detected. Portal vein is patent and shows normal direction of flow. Gallbladder does contain moderate amount of sludge. Gallbladder wall is borderline in thickness at 3 mm. No stones are seen. There is trace pericholecystic fluid. Pancreas is obscured. Proximal and mid aorta is obscured by bowel gas. Distal aorta is normal caliber. IVC is patent. Right kidney is normal in size without calculi or hydronephrosis. There is trace free fluid present. IMPRESSION: 1. Moderate gallbladder sludge and borderline gallbladder wall thickening. No definite cholelithiasis is detected. If there is concern for cholecystitis, HIDA scan may be useful for further evaluation. 2. Minimal ascites. Dictated on workstation # [id number] Dict: 07/21/20 1020 Trans: 07/21/20 1025 [facility] [id number] Interpreted by: JOSH GAINES MD Electronically signed by: Assessment/Plan Assessment/Plan Assessment/Plan Acute pancreatitis DKA Acute renal failure Alcohol abuse US showed some sludge; therefore, down the road (possibly as outpt) should discuss cholecystectomy with pt. Although this episode may be due more to EtOH abuse. Control glucose, keep pt on clears because he still has mod abd pain, IV fluids and pain control. Supervisory-Addendum Brief Verification & Attestation Participated in pt care: history, MDM, physical Personally performed: exam, history, MDM Care discussed with: Medical Student Procedures: n/a Verification and Attestation of Medical Student E/M Service A medical student performed and documented this service. I then reviewed and verified all information documented by the medical student and made modifications to such information, when appropriate. I personally performed a physical exam, medical decision making and then discussed any differences between the notes and made revisions as necessary to create one note. Shayla Pierson , 07/21/20 , 14:51 MARNIE GROVE MED STUDENT Jul 21, 2020 09:07 SHAYLA PIERSON DO Jul 21, 2020 14:50
--- NOTE | 2020-07-21 09:17 | Progress Note - Hospitalist ---
MICA CLARK MED STUDENT 07/21/20 0917: Subjective HPI/CC On Admission Time Seen by Provider: 09:00 John Shannon is a 49 year old male with PMH HTN who presented with nausea and vomiting. He has not been feeling well for about a week. He reports fatigue and weakness. He reports epigastric abdominal pain that radiates to his back. He has lost weight. He has been urinating frequently. He denies dysuria. He denies fevers and chills. He denies chest pain and palpitations. He denies shortness of breath and cough. He has not had diarrhea. He reports occasional binge drinking and had at least 6-7 drinks last Tuesday before this began. He has no history of diabetes. He takes one medicine for blood pressure and fish oil for cholesterol. He also take claritin for allergies. Subjective/Events-last exam Pts feel slightly improved today. His main complaint is the epigastric pain he rates it a 2/10. His nausea has resolved. Pt has no other complaints at this time. Pt passed stool yesterday for the first time on one month- pt states stool looked normal - no melena or hematochezia. Pt denies any past hx of epigastric pain similiar to what brought him into the ED. Review of Systems General: No Chills, No Night Sweats, No Fatigue Pulmonary: No Dyspnea, No Cough, No Pleuritic Chest Pain Cardiovascular: No: Chest Pain, Palpitations, Edema Gastrointestinal: Abdominal Pain (2/10 at rest ), Constipation (Passed stool yesterday for first time in one month. ); No: Nausea, Diarrhea, Melena, Hematochezia Genitourinary: No Dysuria, No Incontinence Objective Exam Vital Signs Vital Signs Date Time Temp Pulse Resp B/P (MAP) Pulse Ox O2 Delivery O2 Flow Rate FiO2 07/21/20 09:00 96 Room Air 07/21/20 08:00 36.1 85 18 134/74 Capillary Refill : Less Than 3 Seconds General Appearance: No Apparent Distress, WD/WN HEENT: PERRL/EOMI, Normal ENT Inspection Neck: Full Range of Motion, Normal Inspection Respiratory: Lungs Clear, Normal Breath Sounds, No Accessory Muscle Use, No Respiratory Distress Cardiovascular: Regular Rate, Rhythm, No Edema, No Murmur, Normal Peripheral Pulses Gastrointestinal: Normal Bowel Sounds, Soft, Guarding, Tenderness (very tender to palpation in epigastric area, RUQ, and LUQ. ) Rectal: Deferred Extremity: Normal Capillary Refill, Normal Inspection Neurologic/Psychiatric: Alert, Oriented x3, Normal Mood/Affect, director cost II-XII Norm as Tested Skin: Normal Color, Warm/Dry Results/Procedures Lab Laboratory Tests 07/21/20 05:52 Patient resulted labs reviewed. Imaging: Reviewed Imaging Report Assessment/Plan Assessment and Plan Assess & Plan/Chief Complaint T2DM, insulin dependent Presented to ED in DKA, has since resolved. Pts glucose in low 200's this morning. 5U SSI last night 3 this morning. Consider increasing Detemir to 25 U HgA1C is pending. Pt has concerns about outpt glucose management being he had no know hx of DM prior to ED visit. Pt education consultation on DM ordered. Acute pancreatitis Gallbladder U/S performed this morning - ruled out gallstone pancreatitis. Pt endores chronic hx of weekend binge drinking, up to 12 shots a night. Denies weekday use. Advance diet at surgurys recommendation. Possible acute on chronic pancreatitis- could contribute to development of insulin-dependent DM. Elevated D-dimer Venous LE U/S performed this morning - neg for thrombosis. CT angiogram to be performed later today Obesity consider outpt management, likely clinical significant, but does not affect pts inpt managment. HTN Hypercholesterolemia Hold home meds. DVT prophylaxis started Lovenox. LINH, resolved. Clinical Quality Measures DVT/VTE Risk/Contraindication: Risk Factor Score Per Nursin RFS Level Per Nursing on Admit: 1=Low/No VTE PPX EMIR EVANGELISTA MD 07/21/20 1348: Subjective HPI/CC On Admission Date Seen by Provider: Jul 21, 2020 Assessment/Plan Assessment and Plan Assess & Plan/Chief Complaint Pt reports feeling better but still having pain. Discussed elevated d-dimer and need for CTA. Negative dopplers. Patient agreeable. Appears to be in pain but declines pain medication. Patient education ordered for insulin and DM educat ion. Diagnosis/Problems Diagnosis/Problems (1) Acute renal failure Status: Acute Qualifiers: Qualified Codes: N17.9 - Acute kidney failure, unspecified (2) Diabetic ketoacidosis Status: Acute Qualifiers: Qualified Codes: E13.10 - Other specified diabetes mellitus with ketoacidosis without coma (3) Acute pancreatitis Status: Acute Qualifiers: Qualified Codes: K85.90 - Acute pancreatitis without necrosis or infection, unspecified Supervisory-Addendum Brief Verification & Attestation Participated in pt care: history, MDM, physical Personally performed: exam, history, MDM, supervision of care Care discussed with: Medical Student Procedures: n/a Results interpretation: Verified all documentation Verification and Attestation of Medical Student E/M Service A medical student performed and documented this service in my presence. I reviewed and verified all information documented by the medical student and made modifications to such information, when appropriate. I personally performed the physical exam and medical decision making. Emir Evangelista, Jul 21, 2020,13:48 MICA CLARK MED STUDENT Jul 21, 2020 09:17 EMIR EVANGELISTA MD Jul 21, 2020 13:48
[2020-07-21] MEDS ORDERED: LISI1TAB29 PO (09:47)
[2020-07-21] MEDS ORDERED: LORA10TA7 PO (09:47)
[2020-07-21] MEDS ORDERED: OMEP20TA7 PO (09:47)
[2020-07-21] MEDS: DOCUSATE SODIUM 100 MG (COLACE) CAP PO SCH ×2 (09:50→20:21)
--- NOTE | 2020-07-21 09:50 | NUR ---
I SPOKE WITH THE PATIENT AND WENT THROUGH THE EXTERNAL MED HISTORY TO COMPLETE THIS MED REC. OTC: OMEPRAZOLE LORATADINE FISH OIL
[2020-07-21] MEDS: SENNOSIDES 8.6 MG (SENOKOT) TAB PO SCH ×2 (09:51→20:21)
--- NOTE | 2020-07-21 10:26 | Diagnostic Imaging Report ---
PROCEDURE: US Venous Lower Ext Anastacio. TECHNIQUE: Multiple real-time grayscale images were obtained over the lower extremities in various projections, bilaterally. Additional duplex Doppler and color Doppler images were also obtained. INDICATION: Elevated d-dimer. Bilateral lower extremity edema. COMPARISON: None. FINDINGS: The bilateral common femoral vein, femoral vein, deep femoral vein, and popliteal vein are normal in appearance. These vessels show normal compressibility, color flow and doppler augmentation. The visualized deep calf veins demonstrate no distinct intraluminal thrombus. IMPRESSION: 1. No sonographic evidence of deep venous thrombosis in the bilateral lower extremities. Dictated by: Dictated on workstation # [id number]
--- NOTE | 2020-07-21 10:26 | Diagnostic Imaging Report ---
PROCEDURE: US Gallbladder. TECHNIQUE: Multiple real-time grayscale images were obtained over the right upper quadrant in various projections. INDICATION: Pancreatitis. FINDINGS: The liver is normal in size at 14.4 cm. No discrete liver mass is detected. Portal vein is patent and shows normal direction of flow. Gallbladder does contain moderate amount of sludge. Gallbladder wall is borderline in thickness at 3 mm. No stones are seen. There is trace pericholecystic fluid. Pancreas is obscured. Proximal and mid aorta is obscured by bowel gas. Distal aorta is normal caliber. IVC is patent. Right kidney is normal in size without calculi or hydronephrosis. There is trace free fluid present. IMPRESSION: 1. Moderate gallbladder sludge and borderline gallbladder wall thickening. No definite cholelithiasis is detected. If there is concern for cholecystitis, HIDA scan may be useful for further evaluation. 2. Minimal ascites. Dictated by: Dictated on workstation # [id number]
[2020-07-21] MEDS: ACETAMINOPHEN 325 MG TABLET PO PRN (11:51)
[2020-07-21] MEDS: ENOXAPARIN 40 MG/0.4 ML (LOVENOX) SYR SC SCH (12:25)
[2020-07-21] MEDS ORDERED: HOLD METFORMIN - RECEIVED CONTRAST 20 ML VIAL IV SCH (14:00)
[2020-07-21] MEDS ORDERED: NS 100 ML (IVPB) BAG IV ONE (14:00)
[2020-07-21] MEDS ORDERED: IOHEXOL 350 MG/ML 100 ML (OMNIPAQUE 350) VIAL IV ONE (14:00)
--- NOTE | 2020-07-21 14:20 | NUR ---
CM/SS: Visited with pt as to his current status and how he was doing Plan: Pt is from home and will likely return there after discharge Summary: This pt is known to this worker via the community and social sciences research scientist. Pt reports he is in awe in believing that he is here in the hospital, and that he is having medical issues. He reports he is a new diabetic. Pt is encouraged that someone can talk with him as being a new diabetic for some teaching. He seems ok with that. Pt reports they are waiting on some test results. Overall pt seems to be content to know more about next steps related to his healthcare. This worker will follow up.
--- NOTE | 2020-07-21 14:44 | NUR ---
RD ASSESSMENT PMHx: HTN; ETOH us (4 shots tequila/day); new onset DM PT INTERACTION: Pt was awake and pleasant during diet consult for diet education. Pt states current appetite is okay, but was poor prior to admit. Note avg PO intake 25% x1d, per chart review. Pt states following a regular diet at home, and has no issues with chewing/swallowing food. Pt states no recent issues with nausea or vomiting, but stated he had not a BM in 1mon. Note last BM was 07/20, and pt currently on bowel regimen of colace BID, and senna BID, per chart review. Pt states recent 25# wt loss x2d. "I weighed 225# on Tuesday and I came in and they said I weighed 200#." Note unable to determine recent wt hx, per chart review. Note pt has new onset of DM, per chart review. ABNORMAL NUTRITION-RELATED LAB VALUES LOW: Na 132; HIGH: glu 270; Est. kcal needs: 6430-0020 kcal | 15-20 kcal/kg Est. Pro needs: 75-93 g Pro | 0.8-1.0 g Pro/kg PES STATEMENT: Inadequate oral intake (NI-2.1) related to loss of appetite, and constipation, as evidenced by pt interview, and avg PO intake 25% x1d. Food- and nutrition-related knowledge deficit (NB-1.1) related to lack of prior nutrition-related education as evidenced by new onset of DM, and no prior knowledge of need for food- and nutrition-related recommendations. INTERVENTION: Continue with current diet order of Clear Liquid diet. Would recommend diet advancement when medically able and as tolerated. Discussed and provided handout on CHO counting. Also discussed fiber intake and portion control. Pt verbalized understanding of information provided. Provided contact information should pt have questions upon discharge. Encouraged pt to eat when able. Will continue to follow and reassess as pt needs, intake, and status change. Hardeep Renee, MS RD LD [phone] cell
--- NOTE | 2020-07-21 15:09 | Diagnostic Imaging Report ---
PROCEDURE: CT angiography of the chest with contrast. TECHNIQUE: Multiple contiguous axial images were obtained through the chest after uneventful bolus administration of intravenous contrast. 3D reconstructed CTA MIP acquisitions were also performed. Auto Exposure Controls were utilized during the CT exam to meet ALARA standards for radiation dose reduction. INDICATION: Elevated D-dimer and chest discomfort. COMPARISON: No prior studies are available for comparison. FINDINGS: Evaluation of the pulmonary arterial system is without evidence of thromboembolism. No filling defects are seen within central, lobar, or segmental arterial branches. The thoracic aorta is normal in caliber. No dissection is seen. No pericardial fluid is detected. There is trace pleural fluid bilaterally. There are minimal infiltrates or atelectasis in the superior segments of bilateral lower lobes. Otherwise, lungs are clear. The upper abdomen does show inflammatory changes surrounding the pancreas, consistent with acute pancreatitis. IMPRESSION: 1. No evidence of pulmonary embolism or thoracic aortic dissection. 2. Trace bilateral pleural effusions. 3. Findings suggestive of acute pancreatitis. Dictated by: Dictated on workstation # [id number]
--- NOTE | 2020-07-21 16:00 | NUR ---
REPORT GIVEN TO INESSA GARRIDO. SHE WILL ASSUME CARE OF THE PATIENT AT THIS TIME.
--- NOTE | 2020-07-21 17:00 | NUR ---
Diabetic Education order rec'd. Ed shared with pt Overview of diabetes, glucometer checks, insulins,where/how to give oneself insulin, use of sharps containers for needles, healthy eating choices, exercise, and other diabetic medications. Floor RN at bedside with evening dose of novolog, as 1600glucose was 343. 7U total given. patient expresses nervousness to attempt injections. will con't to guide, educate, and monitor.
[2020-07-21] MEDS: MELATONIN 3 MG TABLET PO PRN (22:02)
[2020-07-22 05:44] LABS: CHLORIDE 97 MMOL/L (98-107); POTASSIUM 3.4 MMOL/L (3.6-5.0); SODIUM 132 MMOL/L (135-145)
[2020-07-22 05:45] LABS: CALCIUM 8.5 MG/DL (8.5-10.1)
[2020-07-22 05:46] LABS: GLUCOSE 239 MG/DL (70-105)
[2020-07-22 05:48] LABS: CARBON DIOXIDE 22 MMOL/L (21-32)
[2020-07-22 05:50] LABS: CREATININE SERUM 0.92 MG/DL (0.60-1.30); GFR ESTIMATED > 60
[2020-07-22 05:51] LABS: BUN/CREATININE RATIO 13
[2020-07-22] MEDS: inSUlin ASPART (NovoLOG) 1 UNIT/0.01 ML (CHARGE PER UNIT) SC SCH ×4 (06:00→21:18)
[2020-07-22] MEDS: LACTATED RINGERS 1,000 ML IV SCH ×3 (08:45→23:56)
[2020-07-22] MEDS: SENNOSIDES 8.6 MG (SENOKOT) TAB PO SCH ×2 (08:46→21:18)
[2020-07-22] MEDS: DOCUSATE SODIUM 100 MG (COLACE) CAP PO SCH ×2 (08:46→21:17)
--- NOTE | 2020-07-22 09:13 | Progress Note - Hospitalist ---
Subjective HPI/CC On Admission Date Seen by Provider: Jul 22, 2020 Time Seen by Provider: 09:07 John Shannon is a 49 year old male with PMH HTN who presented with nausea and vomiting. He has not been feeling well for about a week. He reports fatigue and weakness. He reports epigastric abdominal pain that radiates to his back. He has lost weight. He has been urinating frequently. He denies dysuria. He denies fevers and chills. He denies chest pain and palpitations. He denies shortness of breath and cough. He has not had diarrhea. He reports occasional binge drinking and had at least 6-7 drinks last Tuesday before this began. He has no history of diabetes. He takes one medicine for blood pressure and fish oil for cholesterol. He also take claritin for allergies. Subjective/Events-last exam Pt reports doing ok today but having worsening hiccups. Pain is about the same. No other specific complaints. Tolerating clear liquids diet well, would like to advance to soft bland diet. Objective Exam Vital Signs Vital Signs Date Time Temp Pulse Resp B/P (MAP) Pulse Ox O2 Delivery O2 Flow Rate FiO2 07/22/20 03:53 36.2 93 18 141/87 97 Room Air Capillary Refill : Less Than 3 Seconds General Appearance: No Apparent Distress, WD/WN Respiratory: Lungs Clear, No Respiratory Distress Cardiovascular: Regular Rate, Rhythm, No Murmur Gastrointestinal: Normal Bowel Sounds, Tenderness (mild, diffuse) Neurologic/Psychiatric: Alert, Oriented x3 Results/Procedures Lab Laboratory Tests 07/22/20 05:04 Patient resulted labs reviewed. Imaging: Reviewed Imaging Report Assessment/Plan Assessment and Plan Assess & Plan/Chief Complaint T2DM, insulin dependent DKA- resolved Presented to ED in DKA, has since resolved. Pts glucose in low 200's this morning. 5U SSI last night 3 this morning. Continue Levemir HgA1C 10.7 Pt education consultation on DM ordered. Acute pancreatitis Gallbladder sludge noted on usg, defer need for HIDA to surgery Pt endores chronic hx of weekend binge drinking, up to 12 shots a night. Denies weekday use. Advance diet to soft, bland diet Elevated D-dimer Venous LE U/S performed this morning - neg for thrombosis CT angiogram negative for PE HTN Hypercholesterolemia BP well controlled, trend DVT prophylaxis Lovenox Diagnosis/Problems Diagnosis/Problems (1) Acute renal failure Status: Acute Qualifiers: Acute renal failure type: unspecified Qualified Codes: N17.9 - Acute kidney failure, unspecified (2) Diabetic ketoacidosis Status: Acute Qualifiers: Diabetes mellitus type: other specified (including TOSHIA) Diabetes mellitus complication detail: without coma Qualified Codes: E13.10 - Other specified diabetes mellitus with ketoacidosis without coma (3) Acute pancreatitis Status: Acute Qualifiers: Pancreatitis type: unspecified pancreatitis type Acute pancreatitis complication: unspecified Qualified Codes: K85.90 - Acute pancreatitis without necrosis or infection, unspecified Clinical Quality Measures DVT/VTE Risk/Contraindication: Risk Factor Score Per Nursin RFS Level Per Nursing on Admit: 1=Low/No VTE PPX EMIR VENTURA MD Jul 22, 2020 09:13
[2020-07-22] MEDS ORDERED: chlorproMAZINE 10 MG (THORAZINE) TAB PO PRN (09:15)
[2020-07-22] MEDS: ENOXAPARIN 40 MG/0.4 ML (LOVENOX) SYR SC SCH (12:24)
--- NOTE | 2020-07-22 12:42 | Progress Note - Surgery ---
GAGAN APPIAH MED STUDENT 07/22/20 1242: Subjective Date Seen by a Provider: Jul 22, 2020 Time Seen by a Provider: 11:31 Subjective/Events-last exam Pt states his abd pain has continued to improve and currently only has it with hiccups. Tolerating clear liquid diet well, no complaints of n/v. Review of Systems General: No Chills, No Night Sweats, No Fatigue, No Malaise HEENT: No Head Aches, No Eye Pain, No Ear Pain, No Dysphasia, No Sinus Congestion, No Post Nasal Drip, No Sore Throat Pulmonary: No Dyspnea, No Cough, No Pleuritic Chest Pain Cardiovascular: No: Chest Pain, Palpitations, Orthopnea, Paroxysmal Noc. Dyspnea, Edema, Lt Headedness Gastrointestinal: Abdominal Pain (intermittently with hiccups); No: Nausea, Vomiting Genitourinary: No Dysuria, No Frequency, No Incontinence, No Hematuria, No Retention Musculoskeletal: No: other, neck pain, shoulder pain, arm pain, back pain, hand pain, leg pain, foot pain Neurological: No: Weakness, Numbness, Incoordination, Change in speech, Confusion, Seizures, Other Focused Exam Respiratory: No Accessory Muscle Use, No Respiratory Distress Cardiovascular: Regular Rate, Rhythm, No Edema, Normal Peripheral Pulses Skin: normal color, warm/dry Objective Exam Vital Signs Date Time Temp Pulse Resp B/P (MAP) Pulse Ox O2 Delivery O2 Flow Rate FiO2 07/22/20 08:00 36.5 100 20 120/86 99 Room Air 07/22/20 03:53 36.2 93 18 141/87 97 Room Air 07/21/20 23:53 36.3 85 18 114/66 97 Room Air 07/21/20 20:35 Room Air 07/21/20 20:34 36.3 81 19 125/81 97 Room Air 07/21/20 18:29 36.5 07/21/20 17:30 97 Room Air 07/21/20 15:27 36.5 82 20 125/77 97 Room Air I & O 07/22/20 07:00 Intake Total 2760 ml Balance 2760 ml Capillary Refill : Less Than 3 Seconds General Appearance: No Apparent Distress, WD/WN HEENT: PERRL/EOMI, Moist Mucous Membranes Neck: Full Range of Motion, Normal Inspection Respiratory: Lungs Clear, No Respiratory Distress Cardiovascular: Regular Rate, Rhythm, No Murmur Gastrointestinal: soft, guarding (voluntary); No rebound; tenderness (mid abdomen - most, but also minimal across entire abdomen), hernia (small umbilical) Extremity: Normal Capillary Refill, Normal Inspection Neurologic/Psychiatric: Alert, Oriented x3 Skin: Normal Color, Warm/Dry Lymphatic: No Adenopathy Results Lab Laboratory Tests 07/21/20 15:36: Glucometer 343H 07/21/20 20:21: Glucometer 234H 07/22/20 05:04: Sodium Level 132L, Potassium Level 3.4L, Chloride Level 97L, Carbon Dioxide Level 22, Anion Gap 13, Blood Urea Nitrogen 12, Creatinine 0.92, Estimat Glomerular Filtration Rate > 60, BUN/Creatinine Ratio 13, Glucose Level 239H, Calcium Level 8.5 07/22/20 11:15: Glucometer 225H Microbiology 07/19/20 Influenza Types A,B Antigen (MICHAEL) - Final, Complete Assessment/Plan Assessment/Plan Admission Diagonsis Acute pancreatitis Assessment/Plan Acute pancreatitis DKA Acute renal failure Alcohol abuse Gallbladder US showed sludge, plan to discuss with pt about potential cholecystectomy as outpatient. Tolerating clear liquids well, advance to soft diet Continue monitoring labs, pain, fluid status. . Clinical Quality Measures DVT/VTE Risk/Contraindication: Risk Factor Score Per Nursin RFS Level Per Nursing on Admit: 1=Low/No VTE PPX CLARENCEHARRISONSHAYLA B DO 07/22/20 1326: Subjective Time Seen by a Provider: 11:31 Subjective/Events-last exam Pt seen and examined, appears very comfortable and in good mood. Would like to eat more; states he was told he was being put on a soft diet. Review of Systems General: No Chills, No Night Sweats, No Fatigue, No Malaise Pulmonary: No Dyspnea, No Cough Cardiovascular: No: Chest Pain, Palpitations Gastrointestinal: No: Nausea, Vomiting, Abdominal Pain Objective Exam General Appearance: No Apparent Distress, WD/WN HEENT: PERRL/EOMI, Moist Mucous Membranes Respiratory: Lungs Clear, Normal Breath Sounds, No Accessory Muscle Use, No Respiratory Distress Cardiovascular: Regular Rate, Rhythm, No Murmur Gastrointestinal: soft, guarding (voluntary); No rebound; tenderness (improved compared to yesteday), hernia (small umbilical) Neurologic/Psychiatric: Alert, Oriented x3 Assessment/Plan Assessment/Plan Assessment/Plan Pancreatitis DKA EtOH abuse Advance diet, control DM, pt can follow up with Dr. Wilson as an outpt to discuss the need for cholecystectomy. Supervisory-Addendum Brief Verification & Attestation Participated in pt care: history, MDM, physical Personally performed: exam, history, MDM Care discussed with: Medical Student Procedures: n/a Verification and Attestation of Medical Student E/M Service A medical student performed and documented this service in my presence. I reviewed and verified all information documented by the medical student and made modifications to such information, when appropriate. I personally performed the physical exam and medical decision making. Shayla Rea, Jul 22, 2020,13:26 GAGAN APPIAH MED STUDENT Jul 22, 2020 12:42 SHAYLA REA DO Jul 22, 2020 13:26
--- NOTE | 2020-07-22 15:14 | NUR ---
CM/SS: Visited with pt as to additional questions he has related to his insurance and coverage related to diabetic medication. Summary: Pt has had diabetic education and teaching earlier today. He reports feeling overwhelmed as to all of the information. He reports that others in his family are diabetic and reassured by this worker that it is manageable. Pt asks about his insurance and coverage related to diabetic supplies. He is currently insured and all insurances do cover diabetic supplies and medication related to his diagnosis. Pt reports he has had Dr Woods for a primary physician and that it had been over a year since he had seen him due to COVID. He reports someone told him he may need to see another doctor as the doctor was sick. He is unclear as to who he will see when discharged. He is encouraged to call the office and see if he can be seen, as well as it will be a good idea to follow up in a week or so after he is discharged from the hospital. He verbalizes understanding. Pt continues to have hiccups like every three words. Pt asked when he can leave this worker shared they are unclear on the date of discharge at this time. Pt thanks this worker for the information. This worker will follow up.
--- NOTE | 2020-07-22 22:24 | NUR ---
pt reported hicups-pt was offered Thorazine which was given
--- NOTE | 2020-07-22 23:00 | NUR ---
pt reports that the Thorazine worked & that his hiccups have resolved.
[2020-07-23] MEDS: inSUlin ASPART (NovoLOG) 1 UNIT/0.01 ML (CHARGE PER UNIT) SC SCH ×2 (05:08→10:51)
[2020-07-23 06:39] LABS: CHLORIDE 97 MMOL/L (98-107); POTASSIUM 3.3 MMOL/L (3.6-5.0); SODIUM 135 MMOL/L (135-145)
[2020-07-23 06:40] LABS: CALCIUM 8.3 MG/DL (8.5-10.1)
[2020-07-23 06:41] LABS: GLUCOSE 188 MG/DL (70-105)
[2020-07-23 06:42] LABS: CARBON DIOXIDE 24 MMOL/L (21-32)
[2020-07-23 06:45] LABS: CREATININE SERUM 0.94 MG/DL (0.60-1.30); GFR ESTIMATED > 60
[2020-07-23 06:46] LABS: BUN/CREATININE RATIO 11
[2020-07-23] MEDS: DOCUSATE SODIUM 100 MG (COLACE) CAP PO SCH (08:14)
[2020-07-23] MEDS: SENNOSIDES 8.6 MG (SENOKOT) TAB PO SCH (08:14)
--- NOTE | 2020-07-23 08:58 | Discharge Inst-Simple/Standard ---
Discharge Inst-Standard Discharge Medications New, Converted or Re-Newed RX: Transmitted to Pharmacy Patient Instructions/Follow Up Plan of Care/Instructions/FU: Please continue to take your medications as written. Please follow up with your primary care doctor to follow up this hospital stay. Activity as Tolerated: Yes Discharge Diet: No Restrictions Return to The Hospital For: Abdominal pain, fever, nausea or vomiting, very high blood sugars, or if you feel you are getting worse. EMIR VENTURA MD Jul 23, 2020 08:58
[2020-07-23] MEDS ORDERED: INSU100I55 SQ (09:01)
[2020-07-23] MEDS ORDERED: INSU100I29 SQ (09:01)
[2020-07-23 11:11] VITALS: BP 134/93
--- NOTE | 2020-07-23 11:51 | Progress Note - Surgery ---
GAGAN APPIAH MED STUDENT 07/23/20 1151: Subjective Date Seen by a Provider: Jul 23, 2020 Time Seen by a Provider: 07:18 Subjective/Events-last exam Pt laying in bed sleeping, NAD. He states he is feeling better; no complaints of abd pain/N/V. He was advanced to soft diet yesterday and says he has been tolerating it well. Review of Systems HEENT: No Head Aches Pulmonary: No Dyspnea Cardiovascular: No: Chest Pain, Palpitations, Lt Headedness Gastrointestinal: No: Nausea, Vomiting, Abdominal Pain Objective Exam Vital Signs Date Time Temp Pulse Resp B/P (MAP) Pulse Ox O2 Delivery O2 Flow Rate FiO2 07/23/20 11:11 36.1 87 20 134/93 99 Room Air 07/23/20 08:38 99 Room Air 07/23/20 07:30 36.1 87 20 134/93 21 Room Air 07/23/20 00:30 36.3 92 18 138/90 99 Room Air 07/22/20 20:18 Room Air 07/22/20 16:00 36.3 88 18 138/90 99 Room Air I & O 07/23/20 07:00 Intake Total 4160 ml Balance 4160 ml Capillary Refill : Less Than 3 SecondsLess Than 3 Seconds General Appearance: No Apparent Distress, WD/WN HEENT: PERRL/EOMI Neck: Normal Inspection Respiratory: Lungs Clear, Normal Breath Sounds, No Accessory Muscle Use, No Respiratory Distress Cardiovascular: Regular Rate, Rhythm, No Murmur Gastrointestinal: non tender, soft, hernia (small umbilical) Extremity: Normal Inspection Neurologic/Psychiatric: Alert, Oriented x3, No Motor/Sensory Deficits Skin: Normal Color, Warm/Dry Results Lab Laboratory Tests 07/22/20 15:25: Glucometer 243H 07/22/20 17:02: Glucometer 245H 07/22/20 20:15: Glucometer 226H 07/23/20 05:08: Glucometer 182H 07/23/20 05:56: Sodium Level 135, Potassium Level 3.3L, Chloride Level 97L, Carbon Dioxide Level 24, Anion Gap 14, Blood Urea Nitrogen 10, Creatinine 0.94, Estimat Glomerular Filtration Rate > 60, BUN/Creatinine Ratio 11, Glucose Level 188H, Calcium Level 8.3L 07/23/20 10:36: Glucometer 185H Microbiology 07/19/20 Influenza Types A,B Antigen (MICHAEL) - Final, Complete Assessment/Plan Assessment/Plan Admission Diagonsis Acute pancreatitis Assessment/Plan Pancreatitis DKA EtOH abuse Pancreatitis appears resolved. Tolerating soft diet. Pt will follow up with Dr. Wilson as an outpt to discuss the need for cholecystectomy. Clinical Quality Measures DVT/VTE Risk/Contraindication: Risk Factor Score Per Nursin RFS Level Per Nursing on Admit: 1=Low/No VTE PPX CANDIDO REA DO 07/23/20 1334: Subjective Time Seen by a Provider: 11:50 Subjective/Events-last exam Pt seen and examined, almost ready to leave. Denies abdominal pain and states tolerating diet. Review of Systems Pulmonary: No Dyspnea Cardiovascular: No: Chest Pain, Palpitations Gastrointestinal: No: Nausea, Vomiting, Abdominal Pain Objective Exam General Appearance: No Apparent Distress HEENT: PERRL/EOMI Respiratory: Lungs Clear, Normal Breath Sounds, No Accessory Muscle Use, No Respiratory Distress Cardiovascular: Regular Rate, Rhythm, No Murmur Gastrointestinal: non tender, soft, no organomegaly, hernia (small umbilical) Assessment/Plan Assessment/Plan Assessment/Plan Pancreatitis - resolved DKA EtOH abuse Pt has f/u appt with Dr. Wilson Supervisory-Addendum Brief Verification & Attestation Participated in pt care: history, MDM, physical Personally performed: exam, history, MDM Care discussed with: Medical Student Procedures: n/a Verification and Attestation of Medical Student E/M Service A medical student performed and documented this service. I then reviewed and verified all information documented by the medical student and made modifications to such information, when appropriate. I personally performed a physical exam, medical decision making and then discussed any differences between the notes and made revisions as necessary to create one note. Candido Rea , 07/23/20 , 13:34 GAGAN APPIAH MED STUDENT Jul 23, 2020 11:51 CANDIDO REA DO Jul 23, 2020 13:34
--- NOTE | 2020-07-23 13:58 | NUR ---
CM/SS: Visited with pt at to his plan for discharge and provide further support for pt for his recent diagnosis of being diabetic. This worker also calls Homa the Escrow Representative to be apart of the visit to assist pt as he plans to discharge on today. Pt expresses alot of anxiety as to his leaving and knowing what to do when he leaves. Plan: Pt to return home as he lives alone locally. Summary: Pt seems to feel better after talking with this worker and the Escrow Representative. This worker writes down information as Homa is talking, related to routine and foods for snack and other foods to eat and his schedule as to when to eat and snacks. This worker goes over the information and additional support through his insurance. This worker also talks with him about his past drinking habit and that he will need to be mindful of that and the affects that alcohol can have on his blood sugars. He verbalizes understanding. He is also educated on his drinking by application support lead and what that can do to his blood sugar numbers. Pt is wished well as he discharges to home. He is given contact information for the dietitian and the application support lead. He thanks this worker for their help during his hospital stay.
== END 2020-07-23 11:11 | disposition home or self-care (01) | DRG 438 ==
LOC: EDUNIT# 07:30 → ER 07:31 → CSD 11:06 → 4TH 07-20 17:00
PROVIDERS: ADMIT Internal Medicine; ATTEND Internal Medicine
DX: K85.90 Acute pancreatitis without necrosis or infection, unspecified (principal); E11.10 Type 2 diabetes mellitus with ketoacidosis without coma; N17.9 Acute kidney failure, unspecified; I10 Essential (primary) hypertension; F17.210 Nicotine dependence, cigarettes, uncomplicated; E78.5 Hyperlipidemia, unspecified; E78.00 Pure hypercholesterolemia, unspecified; E66.9 Obesity, unspecified; Z20.828 Contact with and (suspected) exposure to other viral communicable diseases; Z68.31 Body mass index [BMI] 31.0-31.9, adult; F10.10 Alcohol abuse, uncomplicated
CPT/HCPCS: 36415; 71045; 71275; 74176; 76705; 80048; 80053; 81000; 82010; 82150; 82805; 82962; 83036; 83690; 83735; 84100; 84145; 85025; 85027; 85379; 86141; 87635; 87804; 93005; 93970; 99291

== ENCOUNTER 2020-08-11 05:44 | Outpatient (RCR) | payer OTHER ==
[~2020-08-11] VITALS: Ht 172 cm; Wt 90.9 kg
[~2020-08-11 05:44] MED LIST changes: +ATOR10TA PO; +FERR-84 PO; +INSU100I29 SQ; +INSU100I55 SQ; +INSU100V31 IJ; +INSU100V6 SQ; +LISI1TAB29 PO; +LORA10TA7 PO; +METF-397 PO; +OMEP20TA7 PO
== END 2020-08-11 11:04 | disposition home or self-care (01) ==
LOC: PREOP 05:44
PROVIDERS: ATTEND Surgery
DX: Z01.818 Encounter for other preprocedural examination (principal); K80.20 Calculus of gallbladder without cholecystitis without obstruction; Z20.828 Contact with and (suspected) exposure to other viral communicable diseases
CPT/HCPCS: 87635

== ENCOUNTER 2020-08-13 08:31 | Day surgery (SDC) | payer OTHER ==
[2020-08-13] VITALS (12 sets, daily range): BP systolic 97–150; BP diastolic 64–94
[~2020-08-13] VITALS: Ht 172 cm; Wt 90.9 kg
[2020-08-13] MEDS ORDERED: ceFAZolin 2 GM IV Premixed 50 ML IV ONE (09:00)
[2020-08-13] MEDS ORDERED: LIDOCAINE/EPI 1%-1:100,000 (XYLOCAINE) 50 ML ONE (09:01)
[2020-08-13] MEDS ORDERED: IOPAMIDOL 61% 30 ML (ISOVUE 300) VIAL ONE (09:01)
[2020-08-13] MEDS: LACTATED RINGERS 1,000 ML IV PRN ×2 (09:05→10:17)
[2020-08-13] MEDS ORDERED: ceFAZolin 2 GM IV Premixed 50 ML ONE (09:05)
--- NOTE | 2020-08-13 09:09 | Progress Note-Pre Operative ---
Pre-Operative Progress Note H&P Reviewed The H&P was reviewed, patient examined and no changes noted. Date Seen by Provider: Aug 13, 2020 Time Seen by Provider: 09:08 Date H&P Reviewed: Aug 13, 2020 Time H&P Reviewed: 09:09 Pre-Operative Diagnosis: cholelithiasis, history of pancreatitis JUAN ALBERTO BUSCH DO Aug 13, 2020 09:09
[2020-08-13] MEDS ORDERED: proPOfol 200 MG/20 ML (DIPRIVAN) VIAL IV ONE (09:30)
[2020-08-13] MEDS ORDERED: ONDANSETRON 4 MG/2 ML (SDV) Z0FRAN ONE ×2 (09:30→11:25)
[2020-08-13] MEDS ORDERED: SEVOFLURANE (ULTANE) 15 ML INHAL SOLN ONE ×5 (09:30→10:59)
[2020-08-13] MEDS ORDERED: ROCURONIUM 10 MG/ML 5 ML SYRINGE IV ONE (09:30)
[2020-08-13] MEDS ORDERED: fentaNYL INJECTION 100 MCG/2 ML AMP ONE ×2 (09:32→11:16)
[2020-08-13] MEDS ORDERED: MIDAZOLAM 2 MG/2 ML (VERSED) VIAL ONE (09:32)
[2020-08-13] MEDS ORDERED: LIDOCAINE PF 2% 5 ML (XYLOCAINE) VIAL ONE (10:25)
--- NOTE | 2020-08-13 11:01 | Progress Note-Post Operative ---
Post-Operative Progess Note Surgeon (s)/Sales Product Specialist (s) Surgeon JUAN ALBERTO BUSCH DO Sales Product Specialist: Dr. Pierson to assist in retraction dissection and closure. Pre-Operative Diagnosis cholelithiasis, history of pancreatitis Post-Operative Diagnosis same Procedure & Operative Findings Date of Procedure 08/13/20 Procedure Performed/Findings PROCEDURE: Laparoscopic cholecystectomy with intraoperative cholangiogram. COMPLICATIONS: None. PROCEDURE: The patient was taken to the operating suite and was prepped and draped in sterile fashion. A surgical pause was performed. Just superior to the umbilicus, a 12 mm incision was made. Dissection was taken down to the fascia, which was then scored and grasped with a Babak and the abdomen was then entered. A 0 Vicryl suture was placed in a [id number] fashion and a Leggett trocar was placed and secured. Pneumoperitoneum was achieved. A 5mm trochar place in the subxyphoid and 2 in the right upper quadrant. Multiple adhesions to gallbladder and liver had to be taken down. The gallbladder was then grasped and elevated. Adhesions continued to be taken down. The cystic duct, and cystic artery were then dissected out. Clip was placed on the distal portion of the cystic duct which was then partially transected. An arrow catheter was inserted into the duct. The cholangiogram was then performed. No filing defects and contrast made its way into the duodenum. Catheter removed. Clips were placed on proximal portion of the cystic duct and then the duct was then transected. Clips were placed along the proximal and distal portion of the cystic artery which was then transected. Hook cautery was used to dissect the gallbladder from the gallbladder fossa achieving hemostasis. The gallbladder was placed in an Endobag and removed through the 12 mm trocar site. The abdomen was then reinspected. Copious amounts of irrigation were used to irrigate the abdomen and there were no signs of active bleeding. Hemostasis had been achieved. The 12 mm fascial defect was then closed with 0 Vicryl suture that had been placed in a [id number] fashion. The abdomen was then desufflated, the trocars were removed. The abdomen was then washed and dried. Surgicel placed in the gallbladder fossa. Theskin was then closed using 4-0 Monocryl in a subcuticular fashion. The abdomen was washed and dried and Skin Affix was place over incisions. Patient tolerated the procedure well without any complications and was taken to the recovery room in stable condition. Anesthesia Type general Estimated Blood Loss Estimated blood loss (mL): minimal Specimens/Packing Specimens Removed gallbladder JUAN ALBERTO BUSCH DO Aug 13, 2020 11:01
[2020-08-13] MEDS ORDERED: DOCU-143 PO (11:02)
[2020-08-13] MEDS ORDERED: HYDR-4226 PO (11:02)
--- NOTE | 2020-08-13 11:03 | Discharge Inst-Simple/Standard ---
Discharge Inst-Standard Discharge Medications New, Converted or Re-Newed RX: RX on Chart Patient Instructions/Follow Up Plan of Care/Instructions/FU: 2-3 weeks Steve Activity as Tolerated: No Discharge Diet: Regular Diet Other Inst to Patient Follow up Appt: Make appointment for 2-3 weeks. Instructions: No lifting greater than 10 pounds. No strenuous activity. May shower in 24 hours, no tub bath or soaking. Use incentive spirometer at home as directed. No Smoking Skin/Wound Care: You have special glue over incision, it will fall off on it's own. Symptoms to Report: Appetite Changes, Extremity Discoloration, Numbness/Tingling, Swelling Increased, Bleeding Excessive, Eyesight Changes, Pain Increased, Urine Color Change, Constipation(Persistent), Fever over 101 degree F, Pain/Pressure in chest, Urinating Difficulty, Cough Up/Vomit Blood, Heart Beat Irreg/Pounding, Pain/Pressure in jaw, Vaginal Bleeding Increase, Cramps in feet or legs, Lightheadedness, Pain/Pressure in shoulder, Diarrhea(Persistent), Memory Changes Suddenly, Questions/Concerns, Weight gain consecutive days, Dizziness/Fainting, Nausea/Vomiting, Shortness of Breath, Weight gain over 2 pounds. If eyes or skin turn yellow notify physician. If questions or concerns contact your physician Or seek help at emergency department. JUAN ALBERTO BUSCH DO Aug 13, 2020 11:03
--- NOTE | 2020-08-13 11:19 | Anesthesia-General Post-Op ---
General Patient Condition Mental Status/LOC: Same as Preop Cardiovascular: Satisfactory Nausea/Vomiting: Absent Respiratory: Satisfactory Pain: Controlled Complications: Absent Post Op Complications Complications None Follow Up Care/Instructions Patient Instructions None needed. Anesthesia/Patient Condition Patient Condition Patient is doing well, no complaints, stable vital signs, no apparent adverse anesthesia problems. No complications reported per nursing. TRANG HOLT CRNA Aug 13, 2020 11:19
[2020-08-13] MEDS ORDERED: ONDANSETRON 4 MG/2 ML (SDV) Z0FRAN IVP PRN (11:30)
[2020-08-13] MEDS ORDERED: MEPERIDINE (DEMEROL) INJ 50 MG/ML IVP ONE (11:30)
[2020-08-13] MEDS ORDERED: HYDROmorphone 2 MG/ML VIAL (DILAUDID) IV ONE (11:30)
[2020-08-13] MEDS ORDERED: PROMETHAZINE INJ 25 MG/ML (PHENERGAN) AMP IVP ONE (11:30)
[2020-08-13] MEDS ORDERED: morphine INJ 10 MG/ML 1ML (SYR OR VIAL) IVP ONE (11:30)
[2020-08-13] MEDS ORDERED: fentaNYL INJECTION 100 MCG/2 ML AMP IVP ONE (11:30)
[2020-08-13] MEDS ORDERED: HYDROmorphone 2 MG/ML VIAL (DILAUDID) ONE (11:31)
--- NOTE | 2020-08-13 14:47 | Diagnostic Imaging Report ---
INDICATION: Abdominal pain, cholecystectomy Operative cholangiogram performed in the routine fashion with injection via the cystic duct stump in surgery. A total of 6 seconds fluoroscopy time was used. 31 images were obtained. Contrast injection shows the biliary tree to be nondilated. There are no filling defects in the common duct. Contrast passes into the duodenum without obstruction. IMPRESSION: Unremarkable operative cholangiogram. Dictated by: Dictated on workstation # [id number]
== END 2020-08-13 13:40 | disposition home or self-care (01) ==
LOC: SDC 08:31
PROVIDERS: ATTEND Surgery
DX: K80.10 Calculus of gallbladder with chronic cholecystitis without obstruction (principal); I10 Essential (primary) hypertension; K21.9 Gastro-esophageal reflux disease without esophagitis; E11.9 Type 2 diabetes mellitus without complications; E66.9 Obesity, unspecified; Z68.30 Body mass index [BMI] 30.0-30.9, adult; F17.210 Nicotine dependence, cigarettes, uncomplicated; Z79.899 Other long term (current) drug therapy; Z79.84 Long term (current) use of oral hypoglycemic drugs; Z87.19 Personal history of other diseases of the digestive system
CPT/HCPCS: 76000; 82962; 87081; 88304

== ENCOUNTER → 2022-03-08 | Outpatient (CLI) | payer OTHER ==
[~2022-03-08] MED LIST changes: +DOCU-143 PO; +HYDR-4226 PO; -LISI10TA2 PO; +LISI10TA25 PO; -LISI1TAB29 PO; +LISI1TAB44 PO; +OMEP20TA56 PO; -OMEP20TA7 PO
[2022-03-08 09:46] LABS: ABSOLUTE RETIC # 58 10e9/uL (24-90); BASOPHILS % (AUTO) 1 % (0-10); EOSINOPHILS # (AUTO) 0.1 10^3/uL (0.0-0.3); EOSINOPHILS % (AUTO) 2 % (0-10); HEMATOCRIT 40 % (40-54); HEMOGLOBIN 12.9 g/dL (13.3-17.7); LYMPHOCYTES # (AUTO) 2.4 10^3/uL (1.0-4.0); LYMPHOCYTES % (AUTO) 56 % (12-44); MEAN CORPUSCULAR HEMOGLOBIN 27 pg (25-34); MEAN CORPUSCULAR HGB CONC 32 g/dL (32-36); MEAN CORPUSCULAR VOLUME 85 fL (80-99); MEAN PLATELET VOLUME 10.9 fL (9.0-12.2); MONOCYTES # (AUTO) 0.3 10^3/uL (0.0-1.0); MONOCYTES % (AUTO) 8 % (0-12); NEUTROPHILS # (AUTO) 1.4 10^3/uL (1.8-7.8); NEUTROPHILS % (AUTO) 34 % (42-75); PLATELET COUNT 196 10^3/uL (130-400); RETICULOCYTE % 1.22 % (0.50-2.40); WHITE BLOOD COUNT 4.2 10^3/uL (4.3-11.0)
[2022-03-08 10:06] LABS: ATYPICAL LYMPHOCYTES 1 %; BASOPHILS % (MANUAL) 1 %; ELLIPT/OVALOCYTES SLIGHT; EOSINOPHILS % (MANUAL) 3 %; LYMPHOCYTES % (MANUAL) 56 %; MONOCYTES % (MANUAL) 8 %; NEUTROPHILS % (MANUAL) 30 %; REACTIVE LYMPHOCYTES 1 %
== END ==
LOC: LAB 09:27
PROVIDERS: ATTEND Family Medicine
DX: D72.820 Lymphocytosis (symptomatic) (principal)
CPT/HCPCS: 36415; 85007; 85027; 85045; 85055